=== PATIENT | female | born 1960 | race African-American/Black ===

== ENCOUNTER → 2017-07-21 | Outpatient (CLI) | payer OTHER ==
[2017-07-21] MEDS: GADOBUTROL 7.5 MMOL/7.5 ML VIAL IV (11:53)
== END | disposition home or self-care (01) ==
LOC: KCIC MRI 10:50
DX: G40.909 Epilepsy, unspecified, not intractable, without status epilepticus (principal)
CPT/HCPCS: 70553; A9585

== ENCOUNTER → 2017-08-10 | Outpatient (CLI) | payer OTHER | END | disposition home or self-care (01) | LOC: RT 11:25 | DX: G40.309 Generalized idiopathic epilepsy and epileptic syndromes, not intractable, without status epilepticus (principal) | CPT/HCPCS: 95816 ==

== ENCOUNTER 2018-06-04 19:02 | Emergency (ER) | payer OTHER ==
[~2018-06-04] VITALS: Ht 170.2 cm; Wt 47.6 kg
[~2018-06-04 19:02] MED LIST: CARB200T PO; CLON0.5T PO
[2018-06-04 20:12] LABS: BASO # 0.1 x10^3/uL (0.0-0.2); BASO % 1 % (0-3); EOS # 0.5 x10^3/uL (0.0-0.7); EOS % 7 % (0-3); HEMATOCRIT 37.4 % (36.0-47.0); HEMOGLOBIN 11.8 g/dL (12.0-15.5); LYMPH # 2.1 x10^3/uL (1.0-4.8); LYMPH % 29 % (24-48); MEAN CORPUSCULAR HEMOGLOBIN 25 pg (25-35); MEAN CORPUSCULAR HGB CONC 31 g/dL (31-37); MEAN CORPUSCULAR VOLUME 78 fL (79-100); MONO # 0.3 x10^3/uL (0.0-1.1); MONO % 4 % (0-9); NEUT # 4.2 x10^3uL (1.8-7.7); NEUT % 58 % (31-73); PLATELET COUNT 310 x10^3/uL (140-400); RED BLOOD COUNT 4.78 x10^6/uL (3.50-5.40); RED CELL DISTRIBUTION WIDTH 14.5 % (11.5-14.5); WHITE BLOOD COUNT 7.1 x10^3/uL (4.0-11.0)
[2018-06-04 20:15] LABS: BILIRUBIN,URINE NEGATIVE (NEG); CLARITY,URINE CLEAR; COLOR,URINE YELLOW; NITRITE,URINE NEGATIVE (NEG); PH,URINE 5.5; PROTEIN,URINE NEGATIVE (NEG-TRACE); UROBILINOGEN,URINE 0.2 mg/dL (0.2 mg/dL)
[2018-06-04 20:22] LABS: AMPHETAMINE/METHAMPHETAMINE NEG (NEG); BARBITURATES NEG (NEG); BENZODIAZEPINES NEG (NEG); CANNABINOIDS POS (NEG); COCAINE NEG (NEG); METHADONE NEG (NEG); OPIATES NEG (NEG); PHENCYCLIDINE NEG (NEG)
[2018-06-04 20:28] LABS: BACTERIA,URINE MODERATE /HPF (0-FEW); SQUAMOUS EPITHELIAL CELL,UR OCC /LPF; WBC,URINE >40 /HPF (0-4)
[2018-06-04 20:31] LABS: CALCIUM 9.1 mg/dL (8.5-10.1); CREATININE 0.7 mg/dL (0.6-1.0); GFR 104.7; POTASSIUM 3.8 mmol/L (3.5-5.1)
[2018-06-04 20:41] LABS: ALBUMIN 3.7 g/dL (3.4-5.0); ALBUMIN/GLOBULIN RATIO 0.9 (1.0-1.7); TOTAL BILIRUBIN 0.2 mg/dL (0.2-1.0); TOTAL PROTEIN 7.7 g/dL (6.4-8.2)
[2018-06-04] MEDS ORDERED: IOHEXOL 300 MG/ML 100ML VIAL. IV ONE (20:45)
[2018-06-04] MEDS ORDERED: CONTRAST GIVEN. MC PRN (21:00)
--- NOTE | 2018-06-04 21:02 | PHYS DOC ---
Past Medical History Past Medical History: Anemia, Other Additional Past Medical Histor: EPILEPSY Past Surgical History: Other Additional Past Surgical Histo: TUBES TIDE, 'FACIAL SURGERY' Alcohol Use: None Drug Use: Marijuana Adult General Chief Complaint Chief Complaint: ABDOMINAL PAIN [facility] HPI Patient is a 57 yo female who presents with complaint of two months of decreased appetite and one month of periumbilical and suprapubic abdominal pain. She reports that her brother the month prior to symptom onset and she wondered if her symptoms were part of the grieving process, however she reports her symptoms have worsened. She describes her abdominal pain as intermittent stabbing pain. She also reports that occasionally she gets "hunger pains" but has "no desire to eat". She reports that her clothes are not fitting more loosely than prior to symptom onset. She reports that today she ate milk and cereal which gave her gas (although she reports she used cow's milk and is lactose intolerant), spicy doritos which did not cause symptoms, and 1/2 of a fall and beef burrito which caused abdominal pain. She also reports that today she began having intermittent stabbing R arm pain and back pain but was unable to clarify whether the pain occurred at the same moment as the abdominal pain. She denies dysuria or hematuria, shortness of breath, palpitations, dizziness. She reports a month ago she thinks she had tarry stools, but now describes she has regular stools that are purple and green. Patient reports she has hx epilepsy and neurologist is Dr. Tsai. She denies having a PCP or gynocologist as she recently moved from [place], [place] and has been unable to establish care with anyone. She also reports she is postmenopausal and was told 3 years ago that she has "fibroids on her ovaries that need to be removed before they become cancer". Patient admits to smoking tobacco, occasinoal marijuana usage, former crack cocaine usage, and denies etoh usage. Review of Systems Review of Systems Constitutional: Denies fever or chills [] Respiratory: Denies cough or shortness of breath [] Cardiovascular: No additional information not addressed in HPI [] GI: Admits abdominal pain. Denies diarrhea, constipation, BRBPR, hematochezia. Admits "purple and green stools" : Denies dysuria or hematuria. Denies vaginal DC. Musculoskeletal: Admits intermittent back pain and R arm pain. Integument: Denies rash or skin lesions [] Neurologic: Admits migraines. Admits hx epilepsy All other systems were reviewed and found to be within normal limits, except as documented in this note. Current Medications Current Medications Current Medications Medications (Trade) Dose Ordered Sig/Nishant Start Time Stop Time Status Last Admin Dose Admin Acetaminophen/ Hydrocodone Bitart (Lortab 5/325) 2 tab 1X ONCE 06/04/18 22:15 06/04/18 22:16 DC 06/04/18 22:11 2 TAB Ceftriaxone Sodium (Rocephin) 1 gm 1X ONCE 06/04/18 21:15 06/04/18 21:16 DC 06/04/18 21:54 1 GM Info (CONTRAST GIVEN -- Rx MONITORING) 1 each PRN DAILY PRN 06/04/18 21:00 06/04/18 22:20 DC Iohexol (Omnipaque 300 Mg/ml) 75 ml 1X ONCE 06/04/18 20:45 06/04/18 20:48 DC 06/04/18 21:03 75 ML Allergies Allergies Allergies Coded Allergies Type Severity Reaction Last Updated Verified No Known Drug Allergies 07/21/17 No Physical Exam Physical Exam Constitutional: Well developed, well nourished, thin, HENT: Normocephalic, atraumatic, bilateral external ears normal, oropharynx moist, no oral exudates, nose normal. [] Eyes: PERRLA, EOMI, conjunctiva normal, no discharge. [] Neck: Normal range of motion, no tenderness, supple, no stridor. [] Cardiovascular:Heart rate regular rhythm, no murmur [] Lungs & Thorax: Bilateral breath sounds clear to auscultation [] Abdomen: Bowel sounds normal, soft, epigastric tenderness, no masses, no pulsatile masses. [] Skin: Warm, dry, no erythema, no rash. [] Back: No tenderness, no CVA tenderness. [] Extremities: No tenderness, no cyanosis, no clubbing, ROM intact, no edema. [] Neurologic: Alert and oriented X 3, normal motor function, normal sensory function, no focal deficits noted. [] Psychologic: Affect normal, judgement normal, mood normal. [] Current Patient Data Vital Signs Vital Signs Date Time Temp Pulse Resp B/P (MAP) Pulse Ox O2 Delivery O2 Flow Rate FiO2 06/04/18 22:11 16 99 Room Air 06/04/18 22:00 74 137/73 (94) 06/04/18 19:10 98.2 98.2 Lab Values Laboratory Tests Test 06/04/18 19:06 06/04/18 19:25 06/04/18 19:45 Urine Collection Type Unknown Urine Color Yellow Urine Clarity Clear Urine pH 5.5 Urine Specific [place] 1.015 Urine Protein Negative mg/dL (NEG-TRACE) Urine Glucose (UA) Negative mg/dL (NEG) Urine Ketones (Stick) Negative mg/dL (NEG) Urine Blood Negative (NEG) Urine Nitrite Negative (NEG) Urine Bilirubin Negative (NEG) Urine Urobilinogen Dipstick 0.2 mg/dL (0.2 mg/dL) Urine Leukocyte Esterase Moderate (NEG) Urine RBC 11-20 /HPF (0-2) Urine WBC >40 /HPF (0-4) Urine Squamous Epithelial Cells Occ /LPF Urine Bacteria Moderate /HPF (0-FEW) Urine Mucus Mod /LPF Urine Opiates Screen Neg (NEG) Urine Methadone Screen Neg (NEG) Urine Barbiturates Neg (NEG) Urine Phencyclidine Screen Neg (NEG) Urine Amphetamine/Methamphetamine Neg (NEG) Urine Benzodiazepines Screen Neg (NEG) Urine Cocaine Screen Neg (NEG) Urine Cannabinoids Screen Pos (NEG) Urine Ethyl Alcohol Neg (NEG) POC Urine HCG, Qualitative Hcg negative (Negative) White Blood Count 7.1 x10^3/uL (4.0-11.0) Red Blood Count 4.78 x10^6/uL (3.50-5.40) Hemoglobin 11.8 g/dL (12.0-15.5) L Hematocrit 37.4 % (36.0-47.0) Mean Corpuscular Volume 78 fL (79-100) L Mean Corpuscular Hemoglobin 25 pg (25-35) Mean Corpuscular Hemoglobin Concent 31 g/dL (31-37) Red Cell Distribution Width 14.5 % (11.5-14.5) Platelet Count 310 x10^3/uL (140-400) Neutrophils (%) (Auto) 58 % (31-73) Lymphocytes (%) (Auto) 29 % (24-48) Monocytes (%) (Auto) 4 % (0-9) Eosinophils (%) (Auto) 7 % (0-3) H Basophils (%) (Auto) 1 % (0-3) Neutrophils # (Auto) 4.2 x10^3uL (1.8-7.7) Lymphocytes # (Auto) 2.1 x10^3/uL (1.0-4.8) Monocytes # (Auto) 0.3 x10^3/uL (0.0-1.1) Eosinophils # (Auto) 0.5 x10^3/uL (0.0-0.7) Basophils # (Auto) 0.1 x10^3/uL (0.0-0.2) Sodium Level 142 mmol/L (136-145) Potassium Level 3.8 mmol/L (3.5-5.1) Chloride Level 103 mmol/L (98-107) Carbon Dioxide Level 26 mmol/L (21-32) Anion Gap 13 (6-14) Blood Urea Nitrogen 4 mg/dL (7-20) L Creatinine 0.7 mg/dL (0.6-1.0) Estimated GFR (Cockcroft-Gault) 104.7 BUN/Creatinine Ratio 6 (6-20) Glucose Level 104 mg/dL (70-99) H Calcium Level 9.1 mg/dL (8.5-10.1) Total Bilirubin 0.2 mg/dL (0.2-1.0) Aspartate Amino Transferase (AST) 13 U/L (15-37) L Alanine Aminotransferase (ALT) 17 U/L (14-59) Alkaline Phosphatase 99 U/L (46-116) Troponin I Quantitative < 0.017 ng/mL (0.000-0.055) Total Protein 7.7 g/dL (6.4-8.2) Albumin 3.7 g/dL (3.4-5.0) Albumin/Globulin Ratio 0.9 (1.0-1.7) L Lipase 111 U/L (73-393) Ethyl Alcohol Level < 10 mg/dL (0-10) Laboratory Tests 06/04/18 19:45 Laboratory Tests 06/04/18 19:45 EKG EKG [@ 2001; HR 70 BPM; Sinus rhythm. QRS/QT intervals unremarkable] Radiology/Procedures Radiology/Procedures [PROCEDURE: CT ABD PELV W/ IV CONTRST ONLY CT abdomen and pelvis with contrast TECHNIQUE: Helical CT imaging abdomen and pelvis was acquired with 75 mL Omnipaque 300 intravenous contrast. PQRS statement: CT scans at this facility use dose reduction including either automated exposure control, iterative reconstructions, and /or weight based radiation dosing via mA and kV modification when appropriate to reduce radiation dose to as low as reasonably achievable. HISTORY: Abdominal pain, early satiety. Abdomen findings: Chronic mild compression fractures of the T11, T12 and L1 vertebra. Nonspecific small subcentimeter hypodense lesion right hepatic lobe segment 8 image 16. Spleen, pancreas, adrenal glands, kidneys and gallbladder are unremarkable. There is abnormal wall hypodense submucosal wall thickening at the gastric antrum and pylorus, involvement of the duodenal bulb is also possible. No bowel obstruction evident. Appendix is negative. Duplicated IVC. No abdominal fluid or adenopathy. Pelvis findings: Retroverted uterus there is a 5 cm hypervascular mass of the uterine fundus posteriorly. Ovaries somewhat obscured by surrounding bowel loops. Bladder, rectum and bones are unremarkable. IMPRESSION: 1. Marked wall thickening of the gastric antrum, pylorus and possible involvement of the duodenal bulb. This could indicate gastroenteritis although given the marked degree of wall thickening and relative absence of surrounding edema, infiltrating gastric malignancy such as linitis plastica, or gastric lymphoma would also be considerations. 2. 5 cm hypervascular mass of the uterine fundus. Statistically is most likely a leiomyoma although certainly a uterine sarcoma would be in the differential diagnosis. 3. Chronic thoracolumbar compression fractures. 4. The appendix is negative. Electronically signed by: Billy Tovar MD (06/04/2018 9:16 PM) [facility] DICTATED and SIGNED BY: BILLY TOVAR MD DATE: 06/04/182115 ] Course & Med Decision Making Course & Med Decision Making Patient is a 57 yo female w/ hx epilepsy w/ chief complaint of abdominal pain. Patient reports she has had decreased appetite for 2 months and intermittent abdominal pain for 1 month. . UA reveals moderate leukocytes, moderate bacteria , and occasional squamous cells. CT abdomen pelvis revealed thickening of stomach lining, pylorus, and possible first part of duodenum, which could be suggestive of malignancy or gastritis. EKG unremarkable. CT also mentioned uterine mass/probable leiomyoma. Patient informed of CT findings and given recommendations to establish care with PCP and GI specialist for follow up endoscopy discussed specific possible diagnoses and need for f/u wtihin one motnh. Patient's abdominal pain treated with protonix, norco, and zofran. UTI treated with keflex. Discussed with patient the importance of follow up to further evaluate the CT findings from today. Patient voiced understanding and agreement with plan. Dragon Disclaimer Dragon Disclaimer This electronic medical record was generated, in whole or in part, using a voice recognition dictation system. Departure Departure Impression: Primary Impression: Gastric wall thickening Disposition: HOME, SELF-CARE Condition: STABLE Referrals: JOE CHEW MD (PCP) Scripts Pantoprazole Sodium (PROTONIX) 20 Mg Tablet.dr 1 TAB PO DAILY, #30 TAB 3 Refills Prov: VICKY SCHMIDT MD 06/04/18 Hydrocodone/Apap 5-325 (NORCO 5-325 TABLET) 1 Each Tablet 1-2 EACH PO PRN Q6HRS PRN for PAIN, #15 as needed for pain Prov: VICKY SCHMIDT MD 06/04/18 Ondansetron Hcl (ZOFRAN) 4 Mg Tablet 4 MG PO PRN TID PRN for NAUSEA/VOMITING, #15 nausea/vomiting Prov: VICKY SCHMIDT MD 06/04/18 Cephalexin (CEPHALEXIN) 500 Mg Capsule 1 CAP PO QID, #40 CAP Prov: VICKY SCHMIDT MD 06/04/18 VICKY SCHMIDT MD Jun 04, 2018 21:02
[2018-06-04] MEDS ORDERED: cefTRIAXone IV Push 1 GM VIAL. IVP ONE (21:15)
--- NOTE | 2018-06-04 21:19 | RAD ---
CT abdomen and pelvis with contrast TECHNIQUE: Helical CT imaging abdomen and pelvis was acquired with 75 mL Omnipaque 300 intravenous contrast. PQRS statement: CT scans at this facility use dose reduction including either automated exposure control, iterative reconstructions, and /or weight based radiation dosing via mA and kV modification when appropriate to reduce radiation dose to as low as reasonably achievable. HISTORY: Abdominal pain, early satiety. Abdomen findings: Chronic mild compression fractures of the T11, T12 and L1 vertebra. Nonspecific small subcentimeter hypodense lesion right hepatic lobe segment 8 image 16. Spleen, pancreas, adrenal glands, kidneys and gallbladder are unremarkable. There is abnormal wall hypodense submucosal wall thickening at the gastric antrum and pylorus, involvement of the duodenal bulb is also possible. No bowel obstruction evident. Appendix is negative. Duplicated IVC. No abdominal fluid or adenopathy. Pelvis findings: Retroverted uterus there is a 5 cm hypervascular mass of the uterine fundus posteriorly. Ovaries somewhat obscured by surrounding bowel loops. Bladder, rectum and bones are unremarkable. IMPRESSION: 1. Marked wall thickening of the gastric antrum, pylorus and possible involvement of the duodenal bulb. This could indicate gastroenteritis although given the marked degree of wall thickening and relative absence of surrounding edema, infiltrating gastric malignancy such as linitis plastica, or gastric lymphoma would also be considerations. 2. 5 cm hypervascular mass of the uterine fundus. Statistically is most likely a leiomyoma although certainly a uterine sarcoma would be in the differential diagnosis. 3. Chronic thoracolumbar compression fractures. 4. The appendix is negative. Electronically signed by: Praveen Tovar MD (06/04/2018 9:16 PM) [facility]
[2018-06-04] MEDS ORDERED: HYDR-3164 PO (21:59)
[2018-06-04] MEDS ORDERED: PANT20TA2 PO (21:59)
[2018-06-04] MEDS ORDERED: ONDA4TAB7 PO (21:59)
[2018-06-04] MEDS ORDERED: CEPH500C PO (21:59)
[2018-06-04 22:00] VITALS: BP 137/73
[2018-06-04] MEDS ORDERED: HYDROcodone/APAP 5/325MG 1 TAB TABLET PO ONE (22:15)
--- NOTE | 2018-06-05 08:43 | EKG ---
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
== END 2018-06-04 22:20 | disposition home or self-care (01) ==
LOC: ER 19:02
DX: K31.89 Other diseases of stomach and duodenum (principal); R10.33 Periumbilical pain; R63.0 Anorexia; M79.601 Pain in right arm; G40.909 Epilepsy, unspecified, not intractable, without status epilepticus
CPT/HCPCS: 36415; 74177; 80053; 80307; 81001; 81025; 83690; 84484; 85025; 87086; 93005; 96374; 99285; G0480; J0696; Q9967

== ENCOUNTER 2018-10-28 14:14 | Emergency (ER) | payer OTHER ==
[~2018-10-28] VITALS: Ht 167.6 cm; Wt 55.3 kg
[~2018-10-28 14:14] MED LIST changes: +CEPH500C PO; +HYDR-3164 PO; +ONDA4TAB7 PO; +PANT20TA2 PO
[2018-10-28] MEDS ORDERED: IV NORMAL SALINE 1000ML BAG 1,000 ML IV ONE (14:45)
[2018-10-28 15:01] LABS: BASO # 0.1 x10^3/uL (0.0-0.2); BASO % 1 % (0-3); EOS # 0.3 x10^3/uL (0.0-0.7); EOS % 4 % (0-3); HEMATOCRIT 37.7 % (36.0-47.0); HEMOGLOBIN 11.7 g/dL (12.0-15.5); LYMPH # 2.9 x10^3/uL (1.0-4.8); LYMPH % 38 % (24-48); MEAN CORPUSCULAR HEMOGLOBIN 24 pg (25-35); MEAN CORPUSCULAR HGB CONC 31 g/dL (31-37); MEAN CORPUSCULAR VOLUME 76 fL (79-100); MONO # 0.3 x10^3/uL (0.0-1.1); MONO % 4 % (0-9); NEUT # 4.1 x10^3/uL (1.8-7.7); NEUT % 54 % (31-73); PLATELET COUNT 249 x10^3/uL (140-400); RED BLOOD COUNT 4.97 x10^6/uL (3.50-5.40); WHITE BLOOD COUNT 7.6 x10^3/uL (4.0-11.0)
[2018-10-28 15:05] LABS: BILIRUBIN,URINE NEGATIVE (NEG); CLARITY,URINE CLEAR; COLOR,URINE YELLOW; NITRITE,URINE NEGATIVE (NEG); PH,URINE 6.5; PROTEIN,URINE NEGATIVE (NEG-TRACE); UROBILINOGEN,URINE 0.2 mg/dL (0.2 mg/dL)
[2018-10-28 15:08] LABS: ANION GAP 13 (6-14); BLOOD UREA NITROGEN 13 mg/dL (7-20); BUN/CREATININE RATIO 16 (6-20); CALCIUM 8.9 mg/dL (8.5-10.1); CARBON DIOXIDE 24 mmol/L (21-32); CHLORIDE 106 mmol/L (98-107); CREATININE 0.8 mg/dL (0.6-1.0); GFR 89.5; GLUCOSE 88 mg/dL (70-99); POTASSIUM 3.8 mmol/L (3.5-5.1); SODIUM 143 mmol/L (136-145)
[2018-10-28 15:14] LABS: AMPHETAMINE/METHAMPHETAMINE NEG (NEG); BARBITURATES NEG (NEG); BENZODIAZEPINES NEG (NEG); CANNABINOIDS POS (NEG); COCAINE NEG (NEG); METHADONE NEG (NEG); OPIATES NEG (NEG); PHENCYCLIDINE NEG (NEG)
[2018-10-28 15:17] LABS: ALBUMIN 3.9 g/dL (3.4-5.0); ALK PHOS 106 U/L (46-116); ALT (SGPT) 22 U/L (14-59); AST (SGOT) 20 U/L (15-37); CREATINE KINASE 81 U/L (26-192); TOTAL BILIRUBIN 0.2 mg/dL (0.2-1.0); TOTAL PROTEIN 7.9 g/dL (6.4-8.2)
[2018-10-28 15:20] LABS: BACTERIA,URINE 0 /HPF (0-FEW); RBC,URINE 0 /HPF (0-2); SQUAMOUS EPITHELIAL CELL,UR OCC /LPF; WBC,URINE OCC /HPF (0-4)
--- NOTE | 2018-10-28 15:28 | EKG ---
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
[2018-10-28 15:31] LABS: CARBAM 7.2 mcg/mL (4.0-12.0)
[2018-10-28 15:53] VITALS: BP 171/79
--- NOTE | 2018-10-28 15:58 | PHYS DOC ---
Past Medical History Past Medical History: Anemia, Other Additional Past Medical Histor: EPILEPSY Past Surgical History: Other Additional Past Surgical Histo: TUBES TIDE, 'FACIAL SURGERY' Alcohol Use: None Drug Use: Marijuana Adult General Chief Complaint Chief Complaint: SEIZURE HPI HPI Patient is a 58 year old who was brought here by EMS due to seizure activity. Patient was out shopping at the grocery store, had a seizure that lasted for 1 minute. Patient denied any headache, no neck pain, no chest pain, no shortness of air. Patient has history of seizure, on tegretol, HAS BEEN TAKING HER MEDICATION DIRECTED. Patient is under the care of DR. JOE GIANG, NEUROLOGIST. Patient denied any back pain. She is complaining of left thight pain. no hip pain, no pelvic pain, no knee pain. Review of Systems Review of Systems Constitutional: Denies fever or chills [] Eyes: Denies change in visual acuity, redness, or eye pain [] HENT: Denies nasal congestion or sore throat [] Respiratory: Denies cough or shortness of breath [] Cardiovascular: No additional information not addressed in HPI [] GI: Denies abdominal pain, nausea, vomiting, bloody stools or diarrhea [] : Denies dysuria or hematuria [] Musculoskeletal: Denies back pain, Positive for left thigh pain. Integument: Denies rash or skin lesions [] Neurologic: Denies headache, focal weakness or sensory changes. POSITIVE FOR SEIZURE. Endocrine: Denies polyuria or polydipsia [] All other systems were reviewed and found to be within normal limits, except as documented in this note. Current Medications Current Medications Current Medications Medications (Trade) Dose Ordered Sig/Nishant Start Time Stop Time Status Last Admin Dose Admin Sodium Chloride 1,000 ml @ 1,000 mls/hr 1X ONCE 10/28/18 14:45 10/28/18 15:44 DC 10/28/18 15:04 1,000 MLS/HR Allergies Allergies Allergies Coded Allergies Type Severity Reaction Last Updated Verified No Known Drug Allergies 07/21/17 No Physical Exam Physical Exam Constitutional: Well developed, well nourished, no acute distress, non-toxic appearance. [] HENT: Normocephalic, atraumatic, bilateral external ears normal, oropharynx moist, no oral exudates, nose normal. [] Eyes: PERRLA, EOMI, conjunctiva normal, no discharge. [] Neck: Normal range of motion, no tenderness, supple, no stridor. [] Cardiovascular:Heart rate regular rhythm, no murmur [] Lungs & Thorax: Bilateral breath sounds clear to auscultation [] Abdomen: Bowel sounds normal, soft, no tenderness, no masses, no pulsatile masses. [] Skin: Warm, dry, no erythema, no rash. [] Back: No tenderness, no CVA tenderness. [] Extremities: No tenderness, no cyanosis, no clubbing, ROM intact, no edema. [] Neurologic: Alert and oriented X 3, normal motor function, normal sensory function, no focal deficits noted. [] Psychologic: Affect normal, judgement normal, mood normal. [] Current Patient Data Vital Signs Vital Signs Date Time Temp Pulse Resp B/P (MAP) Pulse Ox O2 Delivery O2 Flow Rate FiO2 10/28/18 15:53 60 18 99 10/28/18 14:14 98.6 195/91 (125) Room Air 98.6 Lab Values Laboratory Tests Test 10/28/18 14:22 10/28/18 14:45 Urine Color Yellow Urine Clarity Clear Urine pH 6.5 Urine Specific [place] 1.015 Urine Protein Negative mg/dL (NEG-TRACE) Urine Glucose (UA) Negative mg/dL (NEG) Urine Ketones (Stick) Negative mg/dL (NEG) Urine Blood Negative (NEG) Urine Nitrite Negative (NEG) Urine Bilirubin Negative (NEG) Urine Urobilinogen Dipstick 0.2 mg/dL (0.2 mg/dL) Urine Leukocyte Esterase Negative (NEG) Urine RBC 0 /HPF (0-2) Urine WBC Occ /HPF (0-4) Urine Squamous Epithelial Cells Occ /LPF Urine Bacteria 0 /HPF (0-FEW) Urine Mucus Slight /LPF Urine Opiates Screen Neg (NEG) Urine Methadone Screen Neg (NEG) Urine Barbiturates Neg (NEG) Urine Phencyclidine Screen Neg (NEG) Urine Amphetamine/Methamphetamine Neg (NEG) Urine Benzodiazepines Screen Neg (NEG) Urine Cocaine Screen Neg (NEG) Urine Cannabinoids Screen Pos (NEG) Urine Ethyl Alcohol Neg (NEG) White Blood Count 7.6 x10^3/uL (4.0-11.0) Red Blood Count 4.97 x10^6/uL (3.50-5.40) Hemoglobin 11.7 g/dL (12.0-15.5) L Hematocrit 37.7 % (36.0-47.0) Mean Corpuscular Volume 76 fL (79-100) L Mean Corpuscular Hemoglobin 24 pg (25-35) L Mean Corpuscular Hemoglobin Concent 31 g/dL (31-37) Red Cell Distribution Width 15.0 % (11.5-14.5) H Platelet Count 249 x10^3/uL (140-400) Neutrophils (%) (Auto) 54 % (31-73) Lymphocytes (%) (Auto) 38 % (24-48) Monocytes (%) (Auto) 4 % (0-9) Eosinophils (%) (Auto) 4 % (0-3) H Basophils (%) (Auto) 1 % (0-3) Neutrophils # (Auto) 4.1 x10^3/uL (1.8-7.7) Lymphocytes # (Auto) 2.9 x10^3/uL (1.0-4.8) Monocytes # (Auto) 0.3 x10^3/uL (0.0-1.1) Eosinophils # (Auto) 0.3 x10^3/uL (0.0-0.7) Basophils # (Auto) 0.1 x10^3/uL (0.0-0.2) Sodium Level 143 mmol/L (136-145) Potassium Level 3.8 mmol/L (3.5-5.1) Chloride Level 106 mmol/L (98-107) Carbon Dioxide Level 24 mmol/L (21-32) Anion Gap 13 (6-14) Blood Urea Nitrogen 13 mg/dL (7-20) Creatinine 0.8 mg/dL (0.6-1.0) Estimated GFR (Cockcroft-Gault) 89.5 BUN/Creatinine Ratio 16 (6-20) Glucose Level 88 mg/dL (70-99) Calcium Level 8.9 mg/dL (8.5-10.1) Total Bilirubin 0.2 mg/dL (0.2-1.0) Aspartate Amino Transferase (AST) 20 U/L (15-37) Alanine Aminotransferase (ALT) 22 U/L (14-59) Alkaline Phosphatase 106 U/L (46-116) Creatine Kinase 81 U/L (26-192) Troponin I Quantitative < 0.017 ng/mL (0.000-0.055) Total Protein 7.9 g/dL (6.4-8.2) Albumin 3.9 g/dL (3.4-5.0) Albumin/Globulin Ratio 1.0 (1.0-1.7) Carbamazepine (Tegretol) Level 7.2 mcg/mL (4.0-12.0) Carbamazepine Last Dose Date 10/27/18 Carbamazepine Last Dose Time 1900 Laboratory Tests 10/28/18 14:45 Laboratory Tests 10/28/18 14:45 EKG EKG [] Radiology/Procedures Radiology/Procedures [][facility] [address] [place] [address] IMAGING REPORT Signed PATIENT: CLAYTON GUEVARA ACCOUNT: [id number] : 1960 LOCATION: ER AGE: 58 SEX: F EXAM STATUS: REG ER ORD. PHYSICIAN: JF BURGOS DO REASON: FELL, LEFT THIGH PAIN PROCEDURE: LEFT FEMUR XRAY EXAM: Left femur, 2 views. HISTORY: Fall. Pain. COMPARISON: None. FINDINGS: 2 views of the left femur are obtained. There is no fracture, dislocation or subluxation. There is enthesopathy along the superior patella. No suspicious lytic or sclerotic osseous lesion is seen. IMPRESSION: No acute osseous finding. Electronically signed by: Brit Do MD (10/28/2018 4:00 PM) [facility] DICTATED and SIGNED BY: BRIT DO MD DATE: 10/28/18 1600 Course & Med Decision Making Course & Med Decision Making Pertinent Labs and Imaging studies reviewed. (See chart for details) Patient felt much better now, wanted to go home. Dragon Disclaimer Dragon Disclaimer This electronic medical record was generated, in whole or in part, using a voice recognition dictation system. Departure Departure Impression: Primary Impression: Seizure Disposition: HOME, SELF-CARE Condition: STABLE Referrals: JOE HCEW MD (PCP) please call your neurologist for follow up on Wednesday. NO DRIVING, NO OPERATE MACHINARY EQUIPMENT, NO CLIMB STAIRWAY. Patient Instructions: Seizure, Adult BURGOS,PETER T DO Oct 28, 2018 15:58
--- NOTE | 2018-10-28 16:03 | RAD ---
EXAM: Left femur, 2 views. HISTORY: Fall. Pain. COMPARISON: None. FINDINGS: 2 views of the left femur are obtained. There is no fracture, dislocation or subluxation. There is enthesopathy along the superior patella. No suspicious lytic or sclerotic osseous lesion is seen. IMPRESSION: No acute osseous finding. Electronically signed by: Brit Becerra MD (10/28/2018 4:00 PM) [facility]
[2018-10-29] MEDS ORDERED: NEOMY/BACITR/POLYMYXIN OINT PACKET. TP ONE (16:59)
[2018-10-30] MEDS ORDERED: CARB200T4 PO (08:57)
== END 2018-10-28 16:06 | disposition home or self-care (01) ==
LOC: ER 14:14
DX: R56.9 Unspecified convulsions (principal)
CPT/HCPCS: 36415; 73552; 80053; 80156; 80307; 81001; 82550; 84484; 85025; 93005; J7030; 99285-25

== ENCOUNTER 2018-10-29 14:46 | Inpatient (IN) | payer OTHER ==
[~2018-10-29] VITALS: Ht 167.6 cm; Wt 54.4 kg
[2018-10-29] MEDS ORDERED: levETIRAcetam 1,000 MG in IV DEXTROSE 5% 100ML 100 ML IV ONE (15:00)
[2018-10-29] MEDS ORDERED: IV NORMAL SALINE 1000ML BAG 1,000 ML IV ONE (15:00)
[2018-10-29 15:03] LABS: BASO # 0.1 x10^3/uL (0.0-0.2); BASO % 1 % (0-3); EOS # 0.1 x10^3/uL (0.0-0.7); EOS % 2 % (0-3); HEMATOCRIT 36.1 % (36.0-47.0); HEMOGLOBIN 11.6 g/dL (12.0-15.5); LYMPH # 2.5 x10^3/uL (1.0-4.8); LYMPH % 34 % (24-48); MEAN CORPUSCULAR HEMOGLOBIN 24 pg (25-35); MEAN CORPUSCULAR HGB CONC 32 g/dL (31-37); MEAN CORPUSCULAR VOLUME 74 fL (79-100); MONO # 0.5 x10^3/uL (0.0-1.1); MONO % 7 % (0-9); NEUT # 4.1 x10^3/uL (1.8-7.7); NEUT % 57 % (31-73); PLATELET COUNT 220 x10^3/uL (140-400); RED BLOOD COUNT 4.85 x10^6/uL (3.50-5.40); RED CELL DISTRIBUTION WIDTH 14.6 % (11.5-14.5); WHITE BLOOD COUNT 7.2 x10^3/uL (4.0-11.0)
[2018-10-29 15:08] LABS: CALCIUM 8.8 mg/dL (8.5-10.1); CREATININE 0.8 mg/dL (0.6-1.0); GFR 89.5; POTASSIUM 3.1 mmol/L (3.5-5.1)
[2018-10-29 15:12] LABS: CARBAM 6.6 mcg/mL (4.0-12.0)
[2018-10-29 15:14] LABS: ALBUMIN 3.9 g/dL (3.4-5.0); TOTAL BILIRUBIN 0.4 mg/dL (0.2-1.0); TOTAL PROTEIN 7.9 g/dL (6.4-8.2)
--- NOTE | 2018-10-29 15:39 | RAD ---
EXAM: Pelvis, single view; right shoulder, 3 views. HISTORY: Pain. COMPARISON: None. FINDINGS: Pelvis: A frontal view of the pelvis is obtained. There is no fracture, dislocation or subluxation. There is a transitional lumbosacral segment, a normal variant. Right shoulder: 3 views of the right shoulder obtained. There is no fracture, dislocation or subluxation. There is minimal subacromial spurring. IMPRESSION: No acute osseous finding. Electronically signed by: Brit Becerra MD (10/29/2018 3:36 PM) [facility]
--- NOTE | 2018-10-29 15:58 | RAD ---
EXAM: Head CT without contrast; cervical spine CT without contrast; maxillofacial bone CT without contrast. HISTORY: Seizure. Fall. TECHNIQUE: Computed tomographic images of the head, cervical spine and maxillofacial bones were obtained without contrast. *One or more of the following individualized dose reduction techniques were utilized for this examination: 1. Automated exposure control. 2. Adjustment of the mA and/or kV according to patient size. 3. Use of iterative reconstruction technique. COMPARISON: None. FINDINGS: Head: There is a moderate to large inferior right frontal scalp and right periorbital soft tissue hematoma. No intracranial hemorrhage is seen. There is no mass effect or midline shift. There is no hydrocephalus. There is nonspecific decreased attenuation within the cerebral white matter, likely due to chronic small vessel disease. There is a suspected small chronic lacunar infarct or dilated perivascular space within the right putamen or external capsule. No calvarial lesion is seen. The mastoid air cells are clear. Cervical spine: There is no significant listhesis. The vertebral bodies are normal in height. There is degenerative endplate remodeling and Schmorl's node formation at C6-C7. There is mild facet arthropathy at multiple levels. No severe stenosis is seen. There is biapical pleural parenchymal scarring. Maxillofacial bones: There is a chronic appearing left nasal bone fracture. There is no sinus opacification or air-fluid level. The temporomandibular joints are intact. There is incidental torus mandibularis. IMPRESSION: 1. Inferior right frontal scalp and right periorbital soft tissue hematoma. There is no acute intracranial finding or evidence of acute maxillofacial bone trauma. 2. Subtle decreased attenuation within the cerebral white matter, likely due to chronic small vessel disease. There may be a chronic lacunar infarct or dilated perivascular space within the right basal ganglia or external capsule. 3. Suspected chronic left nasal bone fracture. 4. Multilevel degenerative change involving the cervical spine, described above. Electronically signed by: Brit eBcerra MD (10/29/2018 3:56 PM) [facility]
--- NOTE | 2018-10-29 16:26 | PHYS DOC ---
Past Medical History Past Medical History: Anemia, Other Additional Past Medical Histor: EPILEPSY Past Surgical History: Other Additional Past Surgical Histo: TUBES TIDE, 'FACIAL SURGERY' Alcohol Use: None Drug Use: Marijuana Adult General Chief Complaint Chief Complaint: SEIZURE HPI HPI Patient is a 58 year old female who was brought here by EMS after she had a seizure today. Patient has history of seizure, on tegretol. She said she has been taking the seizure medication as directed. Patient was at her neighbor's driveway. She had a seizure, fell down, hit her head, face, right shoulder on the ground. Patient is complaining of headache, facial pain, right shoulder pain. Patient also complains of left side pelvic pain. Patient was seen here yesterday for seizure activity also. Patient said she took her seizure medication last night. Patient denied any back pain. Review of Systems Review of Systems Constitutional: Denies fever or chills [] Eyes: Denies change in visual acuity, redness, or eye pain [] HENT: Denies nasal congestion or sore throat. Positive for facial contusion, head injury Respiratory: Denies cough or shortness of breath [] Cardiovascular: No additional information not addressed in HPI [] GI: Denies abdominal pain, nausea, vomiting, bloody stools or diarrhea [] : Denies dysuria or hematuria [] Musculoskeletal:Positive for right shoulder pain, pelvic pain. Integument: Denies rash or skin lesions [] Neurologic: Positive for headache, seizure Endocrine: Denies polyuria or polydipsia [] All other systems were reviewed and found to be within normal limits, except as documented in this note. Current Medications Current Medications Current Medications Medications (Trade) Dose Ordered Sig/Nishant Start Time Stop Time Status Last Admin Dose Admin Levetiracetam 1000 mg/Dextrose 110 ml @ 440 mls/hr 1X ONCE 10/29/18 15:00 10/29/18 15:14 DC 10/29/18 15:07 440 MLS/HR Sodium Chloride 1,000 ml @ 1,000 mls/hr 1X ONCE 10/29/18 15:00 10/29/18 15:59 DC 10/29/18 15:07 1,000 MLS/HR Allergies Allergies Allergies Coded Allergies Type Severity Reaction Last Updated Verified No Known Drug Allergies 07/21/17 No Physical Exam Physical Exam Constitutional: Well developed, well nourished, no acute distress, non-toxic appearance. [] HENT: Right side forehead skin contusion, swelling, right side facial skin abrasion, bilateral external ears normal, oropharynx moist, no oral exudates, nose normal. [] Eyes: PERRLA, EOMI, conjunctiva normal, no discharge. [] Neck: Normal range of motion, no tenderness, supple, no stridor. [] Cardiovascular:Heart rate regular rhythm, no murmur [] Lungs & Thorax: Bilateral breath sounds clear to auscultation [] Abdomen: Bowel sounds normal, soft, no tenderness, no masses, no pulsatile masses. [] Skin: Warm, dry, superficial skin abrasion on forehead, right side face, right shoulder. Back: No tenderness, no CVA tenderness. [] Extremities: No tenderness, no cyanosis, no clubbing, ROM intact, no edema. [] Neurologic: Alert and oriented X 3, normal motor function, normal sensory function, no focal deficits noted. [] Psychologic: Affect normal, judgement normal, mood normal. [] Current Patient Data Vital Signs Vital Signs Date Time Temp Pulse Resp B/P (MAP) Pulse Ox O2 Delivery O2 Flow Rate FiO2 10/29/18 15:48 62 18 98 10/29/18 14:46 98.7 137/76 (96) Room Air 98.7 Lab Values Laboratory Tests Test 10/29/18 14:50 White Blood Count 7.2 x10^3/uL (4.0-11.0) Red Blood Count 4.85 x10^6/uL (3.50-5.40) Hemoglobin 11.6 g/dL (12.0-15.5) L Hematocrit 36.1 % (36.0-47.0) Mean Corpuscular Volume 74 fL (79-100) L Mean Corpuscular Hemoglobin 24 pg (25-35) L Mean Corpuscular Hemoglobin Concent 32 g/dL (31-37) Red Cell Distribution Width 14.6 % (11.5-14.5) H Platelet Count 220 x10^3/uL (140-400) Neutrophils (%) (Auto) 57 % (31-73) Lymphocytes (%) (Auto) 34 % (24-48) Monocytes (%) (Auto) 7 % (0-9) Eosinophils (%) (Auto) 2 % (0-3) Basophils (%) (Auto) 1 % (0-3) Neutrophils # (Auto) 4.1 x10^3/uL (1.8-7.7) Lymphocytes # (Auto) 2.5 x10^3/uL (1.0-4.8) Monocytes # (Auto) 0.5 x10^3/uL (0.0-1.1) Eosinophils # (Auto) 0.1 x10^3/uL (0.0-0.7) Basophils # (Auto) 0.1 x10^3/uL (0.0-0.2) Sodium Level 143 mmol/L (136-145) Potassium Level 3.1 mmol/L (3.5-5.1) L Chloride Level 107 mmol/L (98-107) Carbon Dioxide Level 22 mmol/L (21-32) Anion Gap 14 (6-14) Blood Urea Nitrogen 9 mg/dL (7-20) Creatinine 0.8 mg/dL (0.6-1.0) Estimated GFR (Cockcroft-Gault) 89.5 BUN/Creatinine Ratio 11 (6-20) Glucose Level 102 mg/dL (70-99) H Calcium Level 8.8 mg/dL (8.5-10.1) Total Bilirubin 0.4 mg/dL (0.2-1.0) Aspartate Amino Transferase (AST) 14 U/L (15-37) L Alanine Aminotransferase (ALT) 22 U/L (14-59) Alkaline Phosphatase 104 U/L (46-116) Creatine Kinase 226 U/L (26-192) H Troponin I Quantitative < 0.017 ng/mL (0.000-0.055) Total Protein 7.9 g/dL (6.4-8.2) Albumin 3.9 g/dL (3.4-5.0) Albumin/Globulin Ratio 1.0 (1.0-1.7) Carbamazepine (Tegretol) Level 6.6 mcg/mL (4.0-12.0) Carbamazepine Last Dose Date 10/28/18 Carbamazepine Last Dose Time 1999 Ethyl Alcohol Level < 10 mg/dL (0-10) Laboratory Tests 10/29/18 14:50 Laboratory Tests 10/29/18 14:50 EKG EKG [] Radiology/Procedures Radiology/Procedures [][facility] [address] [place] [address] IMAGING REPORT Signed PATIENT: CLAYTON GUEVARA ACCOUNT: [id number] : 1960 LOCATION: ER AGE: 58 SEX: F EXAM STATUS: REG ER ORD. PHYSICIAN: JF BURGOS DO REASON: HAD A SEIZURE, FELL DOWN, HEAD AND FACIAL INJURY PROCEDURE: CT HEAD AND CERVICAL SPINE WO EXAM: Head CT without contrast; cervical spine CT without contrast; maxillofacial bone CT without contrast. HISTORY: Seizure. Fall. TECHNIQUE: Computed tomographic images of the head, cervical spine and maxillofacial bones were obtained without contrast. *One or more of the following individualized dose reduction techniques were utilized for this examination: 1. Automated exposure control. 2. Adjustment of the mA and/or kV according to patient size. 3. Use of iterative reconstruction technique. COMPARISON: None. FINDINGS: Head: There is a moderate to large inferior right frontal scalp and right periorbital soft tissue hematoma. No intracranial hemorrhage is seen. There is no mass effect or midline shift. There is no hydrocephalus. There is nonspecific decreased attenuation within the cerebral white matter, likely due to chronic small vessel disease. There is a suspected small chronic lacunar infarct or dilated perivascular space within the right putamen or external capsule. No calvarial lesion is seen. The mastoid air cells are clear. Cervical spine: There is no significant listhesis. The vertebral bodies are normal in height. There is degenerative endplate remodeling and Schmorl's node formation at C6-C7. There is mild facet arthropathy at multiple levels. No severe stenosis is seen. There is biapical pleural parenchymal scarring. Maxillofacial bones: There is a chronic appearing left nasal bone fracture. There is no sinus opacification or air-fluid level. The temporomandibular joints are intact. There is incidental torus mandibularis. IMPRESSION: 1. Inferior right frontal scalp and right periorbital soft tissue hematoma. There is no acute intracranial finding or evidence of acute maxillofacial bone trauma. 2. Subtle decreased attenuation within the cerebral white matter, likely due to chronic small vessel disease. There may be a chronic lacunar infarct or dilated perivascular space within the right basal ganglia or external capsule. 3. Suspected chronic left nasal bone fracture. 4. Multilevel degenerative change involving the cervical spine, described above. Electronically signed by: Brit Do MD (10/29/2018 3:56 PM) [facility] DICTATED and SIGNED BY: BRIT DO MD DATE: 10/29/[address] [address] IMAGING REPORT Signed PATIENT: CLAYTON GUEVARA ACCOUNT: [id number] : 1960 LOCATION: ER AGE: 58 SEX: F EXAM STATUS: REG ER ORD. PHYSICIAN: JF BURGOS DO REASON: LEFT SIDE PELVIC PAIN PROCEDURE: PELVIS EXAM: Pelvis, single view; right shoulder, 3 views. HISTORY: Pain. COMPARISON: None. FINDINGS: Pelvis: A frontal view of the pelvis is obtained. There is no fracture, dislocation or subluxation. There is a transitional lumbosacral segment, a normal variant. Right shoulder: 3 views of the right shoulder obtained. There is no fracture, dislocation or subluxation. There is minimal subacromial spurring. IMPRESSION: No acute osseous finding. Electronically signed by: Brit Do MD (10/29/2018 3:36 PM) [facility] DICTATED and SIGNED BY: BRIT DO MD DATE: 10/29/[address] [address] IMAGING REPORT Signed PATIENT: CLAYTON GUEVARA ACCOUNT: [id number] : 1960 LOCATION: ER AGE: 58 SEX: F EXAM STATUS: REG ER ORD. PHYSICIAN: JF BURGOS DO REASON: RIGHT SHOULDER INJURY AFTER HAVING A SEIZURE PROCEDURE: SHOULDER 2+V RIGHT EXAM: Pelvis, single view; right shoulder, 3 views. HISTORY: Pain. COMPARISON: None. FINDINGS: Pelvis: A frontal view of the pelvis is obtained. There is no fracture, dislocation or subluxation. There is a transitional lumbosacral segment, a normal variant. Right shoulder: 3 views of the right shoulder obtained. There is no fracture, dislocation or subluxation. There is minimal subacromial spurring. IMPRESSION: No acute osseous finding. Electronically signed by: Brit Do MD (10/29/2018 3:36 PM) [facility] DICTATED and SIGNED BY: BRIT DO MD DATE: 10/29/18 1536 Course & Med Decision Making Course & Med Decision Making Pertinent Labs and Imaging studies reviewed. (See chart for details) [] Dragon Disclaimer Dragon Disclaimer This electronic medical record was generated, in whole or in part, using a voice recognition dictation system. Departure Departure Impression: Primary Impression: Seizure Additional Impressions: Head contusion Facial contusion Disposition: ADMITTED INPATIENT Admitting Physician: KEVEN REYES) Condition: STABLE Referrals: JOE CHEW MD (PCP) Problem Qualifiers JF BURGOS DO Oct 29, 2018 16:26
[2018-10-29] MEDS ORDERED: ONDANSETRON ODT 4 MG TAB.RAPDIS. PO PRN (16:45)
[2018-10-29] MEDS ORDERED: DIPHTH,PERTUSS(ACELL),TET TOX 0.5 ML DISP.SYRIN. VAX IM ONE (16:45)
[2018-10-29] MEDS ORDERED: cloNIDine HCL 0.1 MG TABLET PO PRN (16:45)
[2018-10-29] MEDS ORDERED: POTASSIUM CHLORIDE 20 MEQ TABLET.ER. PO ONE (16:45)
[2018-10-29] MEDS ORDERED: ACETAMINOPHEN/CODEINE 300/30MG TABLET. PO PRN (16:45)
[2018-10-29] MEDS ORDERED: MORPHINE SULFATE 2 MG/ML VIAL. IV PRN (16:45)
[2018-10-29] MEDS ORDERED: CALCIUM CARBONATE 500 MG TAB.CHEW PO PRN (16:45)
[2018-10-29] MEDS ORDERED: ACETAMINOPHEN 500 MG TABLET PO PRN (16:45)
[2018-10-29] MEDS ORDERED: ZOLPIDEM 5 MG TABLET. PO PRN (16:45)
[2018-10-29] MEDS ORDERED: HYDROcodone/APAP 5/325MG 1 TAB TABLET PO PRN (16:45)
[2018-10-29] MEDS ORDERED: IBUPROFEN 400 MG TABLET. PO PRN (16:45)
--- NOTE | 2018-10-29 16:48 | PDOC1 ---
History and Physical Date of Admission Date of Admission DATE: 10/29/18 TIME: 16:42 Identification/Chief Complaint Chief Complaint sz in 2 consec days Source Source: Caregiver, Chart review, Patient History of Present Illness History of Present Illness 58-year-old -[place] female who has had seizures since she was a kid, known to Dr. Tsai, seizures yesterday while grocery, went to the ER was advised admission but refused admission, Today at the neighbor's driveway, seized again fell and this time hit her right side of the face and has facial abrasions on the right forehead and an obvious right frontal hematoma. Scans are negative for fracture but shows the subcutaneous or soft tissue swelling in the right supraorbital area. Right shoulder and right hip are negative for any fracture. Mildly hypokalemic 3.1. Tegretol level still pending Anemic with hemoglobin 11 and MCV 70s - She is slightly drowsy or sleepy from meds. I'm unsure how her menstrual bleeding is - if she still menstruates or if she ever had a colonoscopy or stool occult etc. done We'll check for iron panel and stool occult I will readdress when she is more awake Tegretol levels are pending. We will consult neurology, seizure precaution, continue all home meds. Past Medical History CENTRAL NERVOUS SYSTEM: Seizure GI: GERD Past Surgical History Past Surgical History: No pertinent history Family History Family History: Hypertension Social History Smoke: No ALCOHOL: none Drugs: None Current Problem List Problem List Problems Medical Problems: (1) Facial contusion Status: Acute (2) Head contusion Status: Acute (3) Seizure Status: Acute Current Medications Current Medications Current Medications Levetiracetam 1000 mg/Dextrose 110 ml @ 440 mls/hr 1X ONCE IV Last administered on 10/29/18at 15:07; Start 10/29/18 at 15:00; Stop 10/29/18 at 15:14; Status DC Sodium Chloride 1,000 ml @ 1,000 mls/hr 1X ONCE IV Last administered on 10/29/18at 15:07; Start 10/29/18 at 15:00; Stop 10/29/18 at 15:59; Status DC Carbamazepine (TEGretol) 200 mg DAILY PO ; Start 10/30/18 at 09:00 Clonazepam (KlonoPIN) 0.5 mg TID PO ; Start 10/29/18 at 21:00 Acetaminophen/ Hydrocodone Bitart (Lortab 5/325) 1 tab PRN Q6HRS PRN PO PAIN; Start 10/29/18 at 16:45 Ondansetron HCl (Zofran Odt) 4 mg PRN Q8HRS PRN PO NAUSEA/VOMITING; Start 10/29/18 at 16:45 Pantoprazole Sodium (Protonix) 40 mg DAILYAC PO ; Start 10/30/18 at 07:30 Lorazepam (Ativan Inj) 2 mg PRN Q4HRS PRN IV SEIZURE; Start 10/29/18 at 16:45 Acetaminophen (Tylenol) 500 mg PRN Q6HRS PRN PO HEADACHE / TEMP; Start 10/29/18 at 16:45 Acetaminophen/ Codeine Phosphate (Tylenol #3) 1 tab PRN Q6HRS PRN PO PAIN MILD TO MODERATE; Start 10/29/18 at 16:45 Zolpidem Tartrate (Ambien) 5 mg PRN QHS PRN PO INSOMNIA; Start 10/29/18 at 16:45 Calcium Carbonate/ Glycine (Tums) 500 mg PRN AFTMEALHC PRN PO INDIGESTION; Start 10/29/18 at 16:45 Clonidine HCl (Catapres) 0.1 mg PRN Q1HR PRN PO HYPERTENSION; Start 10/29/18 at 16:45 Ibuprofen (Motrin) 400 mg PRN Q6HRS PRN PO INFLAMMATION; Start 10/29/18 at 16:45 Potassium Chloride (Klor-Con) 40 meq 1X ONCE PO ; Start 10/29/18 at 16:45; Stop 10/29/18 at 16:46 Diphtheria/ Tetanus/Acell Pertussis (Boostrix) 0.5 ml ONCE ONCE VAX IM ; Start 10/29/18 at 16:45; Stop 10/29/18 at 16:46 Morphine Sulfate (Morphine Sulfate) 1 mg PRN Q2HR PRN IV PAIN; Start 10/29/18 at 16:45; Status UNV Active Scripts Active Protonix (Pantoprazole Sodium) 20 Mg Tablet.dr 1 Tab PO DAILY [place] 5-325 Tablet (Acetaminophen/Hydrocodone Bitart) 1 Each Tablet 1-2 Each PO PRN Q6HRS PRN as needed for pain Zofran (Ondansetron Hcl) 4 Mg Tablet 4 Mg PO PRN TID PRN nausea/vomiting Cephalexin 500 Mg Capsule 1 Cap PO QID Reported Klonopin (Clonazepam) 0.5 Mg Tablet 0.5 Mg PO TID Tegretol (Carbamazepine) 200 Mg Tablet 200 Mg PO Allergies Allergies: Coded Allergies: No Known Drug Allergies (Unverified , 07/21/17) ROS Review of System rt Face hurts from the abrasion and hematoma otherwise rest of 14 ROS point reviewed negative Physical Exam General: No acute distress, Other (mildy sleepy from er meds) HEENT: PERRLA, Other (right forehead abrasion right cheek bone, abrasion, obvious right supraorbital frontal hematoma) Lungs: Clear to auscultation, Normal air movement Heart: S1S2 Cardiovascular: S1, S2 Breasts: Normal, Rt breast nml w/o mass, Lt breast nml w/o mass, Nipples normal Abdomen: Normal bowel sounds, Soft, No tenderness, No hepatosplenomegaly, No masses Rectal Exam: not examined PELVIC: Nml ext genitalia Extremities: No clubbing, No cyanosis, No edema, Normal pulses, No tenderness/swelling Skin: No rashes, No breakdown, No significant lesion Neuro: Normal gait, Normal speech, Strength at 5/5 X4 ext, Normal tone, Sensation intact, Cranial nerves 3-12 NL, Reflexes 2+ Psych/Mental Status: Mental status NL, Mood NL Vitals Vitals Vital Signs Date Time Temp Pulse Resp B/P (MAP) Pulse Ox O2 Delivery O2 Flow Rate FiO2 10/29/18 15:48 62 18 98 10/29/18 14:46 98.7 137/76 (96) Room Air 98.7 Labs Labs Laboratory Tests Test 10/29/18 14:50 White Blood Count 7.2 x10^3/uL (4.0-11.0) Red Blood Count 4.85 x10^6/uL (3.50-5.40) Hemoglobin 11.6 g/dL (12.0-15.5) Hematocrit 36.1 % (36.0-47.0) Mean Corpuscular Volume 74 fL (79-100) Mean Corpuscular Hemoglobin 24 pg (25-35) Mean Corpuscular Hemoglobin Concent 32 g/dL (31-37) Red Cell Distribution Width 14.6 % (11.5-14.5) Platelet Count 220 x10^3/uL (140-400) Neutrophils (%) (Auto) 57 % (31-73) Lymphocytes (%) (Auto) 34 % (24-48) Monocytes (%) (Auto) 7 % (0-9) Eosinophils (%) (Auto) 2 % (0-3) Basophils (%) (Auto) 1 % (0-3) Neutrophils # (Auto) 4.1 x10^3/uL (1.8-7.7) Lymphocytes # (Auto) 2.5 x10^3/uL (1.0-4.8) Monocytes # (Auto) 0.5 x10^3/uL (0.0-1.1) Eosinophils # (Auto) 0.1 x10^3/uL (0.0-0.7) Basophils # (Auto) 0.1 x10^3/uL (0.0-0.2) Sodium Level 143 mmol/L (136-145) Potassium Level 3.1 mmol/L (3.5-5.1) Chloride Level 107 mmol/L (98-107) Carbon Dioxide Level 22 mmol/L (21-32) Anion Gap 14 (6-14) Blood Urea Nitrogen 9 mg/dL (7-20) Creatinine 0.8 mg/dL (0.6-1.0) Estimated GFR (Cockcroft-Gault) 89.5 BUN/Creatinine Ratio 11 (6-20) Glucose Level 102 mg/dL (70-99) Calcium Level 8.8 mg/dL (8.5-10.1) Total Bilirubin 0.4 mg/dL (0.2-1.0) Aspartate Amino Transf (AST/SGOT) 14 U/L (15-37) Alanine Aminotransferase (ALT/SGPT) 22 U/L (14-59) Alkaline Phosphatase 104 U/L (46-116) Creatine Kinase 226 U/L (26-192) Troponin I Quantitative < 0.017 ng/mL (0.000-0.055) Total Protein 7.9 g/dL (6.4-8.2) Albumin 3.9 g/dL (3.4-5.0) Albumin/Globulin Ratio 1.0 (1.0-1.7) Carbamazepine (Tegretol) Level 6.6 mcg/mL (4.0-12.0) Carbamazepine Last Dose Date 10/28/18 Carbamazepine Last Dose Time 1999 Ethyl Alcohol Level < 10 mg/dL (0-10) Laboratory Tests Test 10/29/18 14:50 White Blood Count 7.2 x10^3/uL (4.0-11.0) Red Blood Count 4.85 x10^6/uL (3.50-5.40) Hemoglobin 11.6 g/dL (12.0-15.5) Hematocrit 36.1 % (36.0-47.0) Mean Corpuscular Volume 74 fL (79-100) Mean Corpuscular Hemoglobin 24 pg (25-35) Mean Corpuscular Hemoglobin Concent 32 g/dL (31-37) Red Cell Distribution Width 14.6 % (11.5-14.5) Platelet Count 220 x10^3/uL (140-400) Neutrophils (%) (Auto) 57 % (31-73) Lymphocytes (%) (Auto) 34 % (24-48) Monocytes (%) (Auto) 7 % (0-9) Eosinophils (%) (Auto) 2 % (0-3) Basophils (%) (Auto) 1 % (0-3) Neutrophils # (Auto) 4.1 x10^3/uL (1.8-7.7) Lymphocytes # (Auto) 2.5 x10^3/uL (1.0-4.8) Monocytes # (Auto) 0.5 x10^3/uL (0.0-1.1) Eosinophils # (Auto) 0.1 x10^3/uL (0.0-0.7) Basophils # (Auto) 0.1 x10^3/uL (0.0-0.2) Sodium Level 143 mmol/L (136-145) Potassium Level 3.1 mmol/L (3.5-5.1) Chloride Level 107 mmol/L (98-107) Carbon Dioxide Level 22 mmol/L (21-32) Anion Gap 14 (6-14) Blood Urea Nitrogen 9 mg/dL (7-20) Creatinine 0.8 mg/dL (0.6-1.0) Estimated GFR (Cockcroft-Gault) 89.5 BUN/Creatinine Ratio 11 (6-20) Glucose Level 102 mg/dL (70-99) Calcium Level 8.8 mg/dL (8.5-10.1) Total Bilirubin 0.4 mg/dL (0.2-1.0) Aspartate Amino Transf (AST/SGOT) 14 U/L (15-37) Alanine Aminotransferase (ALT/SGPT) 22 U/L (14-59) Alkaline Phosphatase 104 U/L (46-116) Creatine Kinase 226 U/L (26-192) Troponin I Quantitative < 0.017 ng/mL (0.000-0.055) Total Protein 7.9 g/dL (6.4-8.2) Albumin 3.9 g/dL (3.4-5.0) Albumin/Globulin Ratio 1.0 (1.0-1.7) Carbamazepine (Tegretol) Level 6.6 mcg/mL (4.0-12.0) Carbamazepine Last Dose Date 10/28/18 Carbamazepine Last Dose Time 1999 Ethyl Alcohol Level < 10 mg/dL (0-10) VTE Prophylaxis Ordered VTE Prophylaxis Devices: Yes VTE Pharmacological Prophylaxi: Yes Assessment/Plan Assessment/Plan Right supraorbital/frontal hematoma with right forehead abrasion Right cheekbone abrasion secondary to seizure/fall Noninjury fall except for skin abrasions of the face Known seizures-Tegretol levels pending Mild hypokalemia 3.1 Full code GERD on PPI Microcytic anemia-check iron panel and microcytic indicis Can have outpatient colonoscopy if not yet done Plan: 2 MN< seizure precaution, tegretol levels pending Continue both meds Xanax or Ativan when necessary for seizures 2 midnights 6[address] floor please Iron panel and stool occult re microcytic anemia Consult neurology KCl 40�1 and recheck tomorrow Outpatient C scope if not yet done Further recs pending course Wound care will call of that right facial abrasion and hematoma Seen at ER Dw ER LIZZ GEE MD Oct 29, 2018 16:48
[2018-10-29] MEDS ORDERED: NEOMY/BACITR/POLYMYXIN OINT PACKET. TP ONE (17:15)
[2018-10-29 19:43] VITALS: BP 136/76
[2018-10-29] MEDS ORDERED: carBAMazepine 200 MG TABLET PO ONE (20:30)
[2018-10-29] MEDS: clonazePAM 0.5 MG TABLET PO SCH (20:52)
--- NOTE | 2018-10-29 21:05 | PDOC2 ---
NEUROLOGY CONSULT Date of Admission Date of Admission Full Report Dictated DATE: 10/29/18 TIME: 21:03 Patient is a 58-year-old woman with a lifelong history of a generalized tonic- clonic seizure disorder. She is followed by Dr. Faustin as an outpatient. She is to be maintained on Tegretol 200 mg twice per day but does admit she will often just take 400 mg at night. She is previously been on a higher dosage and felt she did better. Neurologic exam was nonfocal. I will give her 400 mg Tegretol tonight and change her dosage tomorrow to 300 mg twice per day. We couldn't get a follow-up level in 7-10 days. If she remains seizure-free overnight she may be dismissed from a neurologic perspective. Current Medications Current Medications Current Medications Levetiracetam 1000 mg/Dextrose 110 ml @ 440 mls/hr 1X ONCE IV Last administered on 10/29/18at 15:07; Start 10/29/18 at 15:00; Stop 10/29/18 at 15:14; Status DC Sodium Chloride 1,000 ml @ 1,000 mls/hr 1X ONCE IV Last administered on 10/29/18at 15:07; Start 10/29/18 at 15:00; Stop 10/29/18 at 15:59; Status DC Carbamazepine (TEGretol) 200 mg DAILY PO ; Start 10/30/18 at 09:00; Stop 10/30/18 at 09:00; Status DC Clonazepam (KlonoPIN) 0.5 mg TID PO Last administered on 10/29/18at 20:52; Start 10/29/18 at 21:00 Acetaminophen/ Hydrocodone Bitart (Lortab 5/325) 1 tab PRN Q6HRS PRN PO PAIN; Start 10/29/18 at 16:45 Ondansetron HCl (Zofran Odt) 4 mg PRN Q8HRS PRN PO NAUSEA/VOMITING; Start 10/29/18 at 16:45 Pantoprazole Sodium (Protonix) 40 mg DAILYAC PO ; Start 10/30/18 at 07:30 Lorazepam (Ativan Inj) 2 mg PRN Q4HRS PRN IV SEIZURE; Start 10/29/18 at 16:45 Acetaminophen (Tylenol) 500 mg PRN Q6HRS PRN PO HEADACHE / TEMP; Start 10/29/18 at 16:45 Acetaminophen/ Codeine Phosphate (Tylenol #3) 1 tab PRN Q6HRS PRN PO PAIN MILD TO MODERATE; Start 10/29/18 at 16:45 Zolpidem Tartrate (Ambien) 5 mg PRN QHS PRN PO INSOMNIA; Start 10/29/18 at 16:45 Calcium Carbonate/ Glycine (Tums) 500 mg PRN AFTMEALHC PRN PO INDIGESTION; Start 10/29/18 at 16:45 Clonidine HCl (Catapres) 0.1 mg PRN Q1HR PRN PO HYPERTENSION; Start 10/29/18 at 16:45 Ibuprofen (Motrin) 400 mg PRN Q6HRS PRN PO INFLAMMATION; Start 10/29/18 at 16:45 Potassium Chloride (Klor-Con) 40 meq 1X ONCE PO Last administered on 10/29/18at 16:54; Start 10/29/18 at 16:45; Stop 10/29/18 at 16:46; Status DC Diphtheria/ Tetanus/Acell Pertussis (Boostrix) 0.5 ml ONCE ONCE VAX IM Last administered on 10/29/18at 16:55; Start 10/29/18 at 16:45; Stop 10/29/18 at 16:46; Status DC Morphine Sulfate (Morphine Sulfate) 1 mg PRN Q2HR PRN IV PAIN; Start 10/29/18 at 16:45 Neomycin/ Polymyxin/ Bacitracin (Triple Antibiotic Ointment) 1 pkt 1X ONCE TP Last administered on 10/29/18at 17:00; Start 10/29/18 at 17:15; Stop 10/29/18 at 17:16; Status DC Carbamazepine (TEGretol) 400 mg ONCE ONCE PO Last administered on 10/29/18at 20:52; Start 10/29/18 at 20:30; Stop 10/29/18 at 20:32; Status DC Carbamazepine (TEGretol) 300 mg BID PO ; Start 10/30/18 at 09:00 Active Scripts Active Protonix (Pantoprazole Sodium) 20 Mg Tablet. 1 Tab PO DAILY [place] 5-325 Tablet (Acetaminophen/Hydrocodone Bitart) 1 Each Tablet 1-2 Each PO PRN Q6HRS PRN as needed for pain Zofran (Ondansetron Hcl) 4 Mg Tablet 4 Mg PO PRN TID PRN nausea/vomiting Cephalexin 500 Mg Capsule 1 Cap PO QID Reported Klonopin (Clonazepam) 0.5 Mg Tablet 0.5 Mg PO TID Tegretol (Carbamazepine) 200 Mg Tablet 200 Mg PO Allergies Allergies: Coded Allergies: No Known Drug Allergies (Unverified , 07/21/17) Vitals VITALS Vital Signs Date Time Temp Pulse Resp B/P (MAP) Pulse Ox O2 Delivery O2 Flow Rate FiO2 10/29/18 19:43 97.4 76 20 136/76 (96) 96 Room Air 97.4 Labs Labs Laboratory Tests Test 10/29/18 14:10 10/29/18 14:50 Iron Level 149 ug/dL (50-170) Total Iron Binding Capacity 324 ug/dL (250-450) Iron Saturation 46 % (15-34) White Blood Count 7.2 x10^3/uL (4.0-11.0) Red Blood Count 4.85 x10^6/uL (3.50-5.40) Hemoglobin 11.6 g/dL (12.0-15.5) Hematocrit 36.1 % (36.0-47.0) Mean Corpuscular Volume 74 fL (79-100) Mean Corpuscular Hemoglobin 24 pg (25-35) Mean Corpuscular Hemoglobin Concent 32 g/dL (31-37) Red Cell Distribution Width 14.6 % (11.5-14.5) Platelet Count 220 x10^3/uL (140-400) Neutrophils (%) (Auto) 57 % (31-73) Lymphocytes (%) (Auto) 34 % (24-48) Monocytes (%) (Auto) 7 % (0-9) Eosinophils (%) (Auto) 2 % (0-3) Basophils (%) (Auto) 1 % (0-3) Neutrophils # (Auto) 4.1 x10^3/uL (1.8-7.7) Lymphocytes # (Auto) 2.5 x10^3/uL (1.0-4.8) Monocytes # (Auto) 0.5 x10^3/uL (0.0-1.1) Eosinophils # (Auto) 0.1 x10^3/uL (0.0-0.7) Basophils # (Auto) 0.1 x10^3/uL (0.0-0.2) Sodium Level 143 mmol/L (136-145) Potassium Level 3.1 mmol/L (3.5-5.1) Chloride Level 107 mmol/L (98-107) Carbon Dioxide Level 22 mmol/L (21-32) Anion Gap 14 (6-14) Blood Urea Nitrogen 9 mg/dL (7-20) Creatinine 0.8 mg/dL (0.6-1.0) Estimated GFR (Cockcroft-Gault) 89.5 BUN/Creatinine Ratio 11 (6-20) Glucose Level 102 mg/dL (70-99) Calcium Level 8.8 mg/dL (8.5-10.1) Total Bilirubin 0.4 mg/dL (0.2-1.0) Aspartate Amino Transf (AST/SGOT) 14 U/L (15-37) Alanine Aminotransferase (ALT/SGPT) 22 U/L (14-59) Alkaline Phosphatase 104 U/L (46-116) Creatine Kinase 226 U/L (26-192) Troponin I Quantitative < 0.017 ng/mL (0.000-0.055) Total Protein 7.9 g/dL (6.4-8.2) Albumin 3.9 g/dL (3.4-5.0) Albumin/Globulin Ratio 1.0 (1.0-1.7) Carbamazepine (Tegretol) Level 6.6 mcg/mL (4.0-12.0) Carbamazepine Last Dose Date 10/28/18 Carbamazepine Last Dose Time 1999 Ethyl Alcohol Level < 10 mg/dL (0-10) Laboratory Tests Test 10/29/18 14:10 10/29/18 14:50 Iron Level 149 ug/dL (50-170) Total Iron Binding Capacity 324 ug/dL (250-450) Iron Saturation 46 % (15-34) White Blood Count 7.2 x10^3/uL (4.0-11.0) Red Blood Count 4.85 x10^6/uL (3.50-5.40) Hemoglobin 11.6 g/dL (12.0-15.5) Hematocrit 36.1 % (36.0-47.0) Mean Corpuscular Volume 74 fL (79-100) Mean Corpuscular Hemoglobin 24 pg (25-35) Mean Corpuscular Hemoglobin Concent 32 g/dL (31-37) Red Cell Distribution Width 14.6 % (11.5-14.5) Platelet Count 220 x10^3/uL (140-400) Neutrophils (%) (Auto) 57 % (31-73) Lymphocytes (%) (Auto) 34 % (24-48) Monocytes (%) (Auto) 7 % (0-9) Eosinophils (%) (Auto) 2 % (0-3) Basophils (%) (Auto) 1 % (0-3) Neutrophils # (Auto) 4.1 x10^3/uL (1.8-7.7) Lymphocytes # (Auto) 2.5 x10^3/uL (1.0-4.8) Monocytes # (Auto) 0.5 x10^3/uL (0.0-1.1) Eosinophils # (Auto) 0.1 x10^3/uL (0.0-0.7) Basophils # (Auto) 0.1 x10^3/uL (0.0-0.2) Sodium Level 143 mmol/L (136-145) Potassium Level 3.1 mmol/L (3.5-5.1) Chloride Level 107 mmol/L (98-107) Carbon Dioxide Level 22 mmol/L (21-32) Anion Gap 14 (6-14) Blood Urea Nitrogen 9 mg/dL (7-20) Creatinine 0.8 mg/dL (0.6-1.0) Estimated GFR (Cockcroft-Gault) 89.5 BUN/Creatinine Ratio 11 (6-20) Glucose Level 102 mg/dL (70-99) Calcium Level 8.8 mg/dL (8.5-10.1) Total Bilirubin 0.4 mg/dL (0.2-1.0) Aspartate Amino Transf (AST/SGOT) 14 U/L (15-37) Alanine Aminotransferase (ALT/SGPT) 22 U/L (14-59) Alkaline Phosphatase 104 U/L (46-116) Creatine Kinase 226 U/L (26-192) Troponin I Quantitative < 0.017 ng/mL (0.000-0.055) Total Protein 7.9 g/dL (6.4-8.2) Albumin 3.9 g/dL (3.4-5.0) Albumin/Globulin Ratio 1.0 (1.0-1.7) Carbamazepine (Tegretol) Level 6.6 mcg/mL (4.0-12.0) Carbamazepine Last Dose Date 10/28/18 Carbamazepine Last Dose Time 1999 Ethyl Alcohol Level < 10 mg/dL (0-10) MORGAN CHARLES MD Oct 29, 2018 21:05
[2018-10-29 23:20] VITALS: BP 144/81
--- NOTE | 2018-10-30 02:58 | CONS ---
DATE OF CONSULTATION: 10/29/2018 REFERRING PHYSICIAN: Jessy Loja MD. REASON FOR CONSULTATION: Recurrent seizure and known seizure disorder. HISTORY OF PRESENT ILLNESS: The patient is a 58-year-old woman who has had seizures since she was a young child. She is followed by Dr. Joe Faustin. She has been maintained on Tegretol. When she was followed by different neurologists, her Tegretol level was higher than the current. She is supposed to be taking Tegretol 200 mg twice per day. She does admit there are many days that she just takes 400 mg at night and does not take 200 mg in the morning. She has had some breakthrough seizure. Prior to this, the most recent breakthrough seizure was March. She was in the Emergency Room recently, but refused admission. On this occasion, she was at a neighbor's driveway, had a seizure and struck the right side of her face with abrasions. She came in for investigation and fortunately did not have fracture or subdural hematoma. She does have some soreness of her left leg and her face is abrased, but not terribly painful. Since being admitted, she has not had further seizure. The Tegretol level was measured to be 6.6. PAST MEDICAL HISTORY: 1. Generalized tonic-clonic seizure disorder. 2. Gastroesophageal reflux disease. ALLERGIES: No known allergies to drugs. MEDICINES PRIOR TO ADMISSION: Acetaminophen/hydrocodone as needed, Tegretol 200 mg twice per day, but she generally takes 400 mg at night, cephalexin 500 mg 4 times a day, clonazepam 0.5 mg up to 3 times a day, Zofran 4 mg as needed and pantoprazole 20 mg. FAMILY HISTORY: Hypertension. SOCIAL HISTORY: She reports she is a lifelong nonsmoker. She does not drink alcohol. She does occasionally smoke marijuana. She is single, but has a boyfriend. She is not working, but is on disability. REVIEW OF SYSTEMS: She does not have headache. There has been no change of vision or hearing. She is not aware of any cognitive loss. She has been able to chew and swallow. She does not have shortness of breath, chest or abdominal pain. She does have bone and joint pain with the left leg. She has not had fever or rash. Does not have any gastrointestinal or genitourinary complaints. She feels her weight has been stable. She always has a very slight build. She does not complain of any focal numbness. She does not have any psychiatric concerns. She does not complain of easy bruising or bleeding. PHYSICAL EXAMINATION: VITAL SIGNS: The blood pressure was 136/76, pulse 76, respirations 20, temperature 97.4 degrees Fahrenheit. Oximetry was 96% on room air. Her weight was 54.4 kilograms, height 66 inches with a calculated body mass index of 19.4. NEUROLOGIC: She was alert, awake and cooperative. Speech was fluent and clear. She had a good fund of recent and remote knowledge. Attention and concentration was intact. She appeared well groomed and well nourished. She was fully oriented. Examination of the cranial nerves revealed visual godoy were full to confrontation. Extraocular movements were intact. The eyes were conjugate. Pursuit movements were smooth and saccadic eye movements were without dysmetria. Pupils were 2-3 mm. Funduscopic exam did not reveal papilledema. Facial sensation was intact bilaterally. She had abrasions across the right side of the face. There was swelling. The muscles of mastication and facial expression were powerful symmetrically. Hearing was intact to finger rub. The palate arched symmetrically and the tongue was midline with full range of motion. Sternocleidomastoid and trapezius were powerful. Muscle bulk and tone was normal. There was no arm drift or abnormal movement. There was no leg drift. Power was full and symmetric in the upper and lower extremities. Reflexes 2/4 and symmetric in the upper and lower extremities, but diminished at the right ankle. The toes were downgoing bilaterally. Coordination testing with [id number], [id number], fine motor and rapid alternating movements was well performed. Sensory exam was intact to pain, light touch, proprioception, graphesthesia, cold thermal and vibration. There was no extinction to double simultaneous stimulation. Gait was of a normal base and steady. She was able to stand on heels or toes. Romberg stance was negative. Auscultation of the carotid arteries did not reveal a bruit. HEART: Rhythm is regular, without a murmur. EXTREMITIES: Peripheral pulses were symmetric in the hands and in the feet. There was no edema or cyanosis. REVIEW OF LABORATORY DATA: CBC revealed a normal white blood cell count and platelet count. Hemoglobin was low at 11.6, hematocrit normal at 36.1. Chemistries revealed normal sodium, but potassium was low at 3.1. The chloride and CO2 were normal. BUN and creatinine were normal. Glucose was elevated to 102. Calcium was normal. Liver enzymes were not elevated. CPK was elevated to 226. Troponin was not elevated. Total protein and albumin were normal. Iron saturation was elevated at 46% with an iron of 149 and TIBC of 324. Tegretol level was 6.6. Alcohol was not detected. CT scan of the head and cervical spine was performed 10/29/2018 and revealed no acute intracranial findings. There was some scalp and right periorbital tissue hematoma. There was some subtle chronic small vessel disease. There was a suspected chronic left nasal bone fracture. There were multiple degenerative changes in the cervical spine. Shoulder x-ray on the right revealed no bony abnormality. Pelvis x-ray revealed no bony abnormality. IMPRESSION: The patient is a 58-year-old woman who has a lifelong history of seizure disorder and had a breakthrough seizure today as well as yesterday. She is not taking her Tegretol properly. The Tegretol level was in the lower therapeutic range. RECOMMENDATIONS: I do not feel we necessarily need to add a new medication, but rather optimize the Tegretol dosage. I will give her an extra 400 mg for her bedtime dosage and tomorrow we will increase her Tegretol to 300 mg twice per day. We could always have a followup level in 7-10 days. We discussed the importance of actually taking it twice a day and not all at night because of its shorter half-life she would have too low of a level before her next dosage. I would also even consider switching her to more of a sustained release Tegretol if her insurance would cover that dosage form. She will continue to follow up with Dr. Faustin. I appreciate being involved in her care. If she remains seizure free overnight, she may be dismissed from a neurologic perspective. MORGAN CHARLES MD DR: CLAYTON/hayley JOB#: [id number] / [id number] JOE Gaines MD, FERILYN MD
[2018-10-30 03:30] VITALS: BP 141/73
[2018-10-30 07:00] VITALS: BP 145/77
[2018-10-30] MEDS ORDERED: PANTOPRAZOLE 40 MG TABLET.DR. PO SCH (07:30)
[2018-10-30] MEDS ORDERED: CARB200T4 PO (08:57)
[2018-10-30] MEDS ORDERED: carBAMazepine 200 MG TABLET PO SCH ×2 (09:00)
[2018-10-30] MEDS: clonazePAM 0.5 MG TABLET PO SCH (10:05)
[2018-10-30 11:00] VITALS: BP 138/72
--- NOTE | 2018-10-30 11:13 | PDOC3 ---
Discharge Summary Visit Information Date of Admission: Oct 29, 2018 Date of Discharge: Oct 30, 2018 Admitting Diagnosis Comment: Right supraorbital/frontal hematoma with right forehead abrasion Right cheekbone abrasion secondary to seizure/fall Noninjury fall except for skin abrasions of the face Known seizures-Tegretol levels pending Mild hypokalemia 3.1 Full code GERD on PPI Microcytic anemia-check iron panel and microcytic indicis Can have outpatient colonoscopy if not yet done Final Diagnosis Problems Medical Problems: (1) Facial contusion Status: Acute (2) Head contusion Status: Acute (3) Seizure Status: Acute Brief Hospital Course Allergies Allergies Coded Allergies Type Severity Reaction Last Updated Verified No Known Drug Allergies 07/21/17 No Vital Signs Vital Signs Date Time Temp Pulse Resp B/P (MAP) Pulse Ox O2 Delivery O2 Flow Rate FiO2 10/30/18 08:00 Room Air 10/30/18 07:00 98.2 67 18 145/77 (99) 100 98.2 Lab Results Laboratory Tests Test 10/29/18 14:10 10/29/18 14:50 10/30/18 04:00 Iron Level 149 ug/dL (50-170) Total Iron Binding Capacity 324 ug/dL (250-450) Iron Saturation 46 % (15-34) White Blood Count 7.2 x10^3/uL (4.0-11.0) Red Blood Count 4.85 x10^6/uL (3.50-5.40) Hemoglobin 11.6 g/dL (12.0-15.5) Hematocrit 36.1 % (36.0-47.0) Mean Corpuscular Volume 74 fL (79-100) Mean Corpuscular Hemoglobin 24 pg (25-35) Mean Corpuscular Hemoglobin Concent 32 g/dL (31-37) Red Cell Distribution Width 14.6 % (11.5-14.5) Platelet Count 220 x10^3/uL (140-400) Neutrophils (%) (Auto) 57 % (31-73) Lymphocytes (%) (Auto) 34 % (24-48) Monocytes (%) (Auto) 7 % (0-9) Eosinophils (%) (Auto) 2 % (0-3) Basophils (%) (Auto) 1 % (0-3) Neutrophils # (Auto) 4.1 x10^3/uL (1.8-7.7) Lymphocytes # (Auto) 2.5 x10^3/uL (1.0-4.8) Monocytes # (Auto) 0.5 x10^3/uL (0.0-1.1) Eosinophils # (Auto) 0.1 x10^3/uL (0.0-0.7) Basophils # (Auto) 0.1 x10^3/uL (0.0-0.2) Sodium Level 143 mmol/L (136-145) Potassium Level 3.1 mmol/L (3.5-5.1) 4.1 mmol/L (3.5-5.1) Chloride Level 107 mmol/L (98-107) Carbon Dioxide Level 22 mmol/L (21-32) Anion Gap 14 (6-14) Blood Urea Nitrogen 9 mg/dL (7-20) Creatinine 0.8 mg/dL (0.6-1.0) Estimated GFR (Cockcroft-Gault) 89.5 BUN/Creatinine Ratio 11 (6-20) Glucose Level 102 mg/dL (70-99) Calcium Level 8.8 mg/dL (8.5-10.1) Total Bilirubin 0.4 mg/dL (0.2-1.0) Aspartate Amino Transf (AST/SGOT) 14 U/L (15-37) Alanine Aminotransferase (ALT/SGPT) 22 U/L (14-59) Alkaline Phosphatase 104 U/L (46-116) Creatine Kinase 226 U/L (26-192) Troponin I Quantitative < 0.017 ng/mL (0.000-0.055) Total Protein 7.9 g/dL (6.4-8.2) Albumin 3.9 g/dL (3.4-5.0) Albumin/Globulin Ratio 1.0 (1.0-1.7) Carbamazepine (Tegretol) Level 6.6 mcg/mL (4.0-12.0) Carbamazepine Last Dose Date 10/28/18 Carbamazepine Last Dose Time 1999 Ethyl Alcohol Level < 10 mg/dL (0-10) Laboratory Tests Test 10/29/18 14:10 10/29/18 14:50 10/30/18 04:00 Iron Level 149 ug/dL (50-170) Total Iron Binding Capacity 324 ug/dL (250-450) Iron Saturation 46 % (15-34) White Blood Count 7.2 x10^3/uL (4.0-11.0) Red Blood Count 4.85 x10^6/uL (3.50-5.40) Hemoglobin 11.6 g/dL (12.0-15.5) Hematocrit 36.1 % (36.0-47.0) Mean Corpuscular Volume 74 fL (79-100) Mean Corpuscular Hemoglobin 24 pg (25-35) Mean Corpuscular Hemoglobin Concent 32 g/dL (31-37) Red Cell Distribution Width 14.6 % (11.5-14.5) Platelet Count 220 x10^3/uL (140-400) Neutrophils (%) (Auto) 57 % (31-73) Lymphocytes (%) (Auto) 34 % (24-48) Monocytes (%) (Auto) 7 % (0-9) Eosinophils (%) (Auto) 2 % (0-3) Basophils (%) (Auto) 1 % (0-3) Neutrophils # (Auto) 4.1 x10^3/uL (1.8-7.7) Lymphocytes # (Auto) 2.5 x10^3/uL (1.0-4.8) Monocytes # (Auto) 0.5 x10^3/uL (0.0-1.1) Eosinophils # (Auto) 0.1 x10^3/uL (0.0-0.7) Basophils # (Auto) 0.1 x10^3/uL (0.0-0.2) Sodium Level 143 mmol/L (136-145) Potassium Level 3.1 mmol/L (3.5-5.1) 4.1 mmol/L (3.5-5.1) Chloride Level 107 mmol/L (98-107) Carbon Dioxide Level 22 mmol/L (21-32) Anion Gap 14 (6-14) Blood Urea Nitrogen 9 mg/dL (7-20) Creatinine 0.8 mg/dL (0.6-1.0) Estimated GFR (Cockcroft-Gault) 89.5 BUN/Creatinine Ratio 11 (6-20) Glucose Level 102 mg/dL (70-99) Calcium Level 8.8 mg/dL (8.5-10.1) Total Bilirubin 0.4 mg/dL (0.2-1.0) Aspartate Amino Transf (AST/SGOT) 14 U/L (15-37) Alanine Aminotransferase (ALT/SGPT) 22 U/L (14-59) Alkaline Phosphatase 104 U/L (46-116) Creatine Kinase 226 U/L (26-192) Troponin I Quantitative < 0.017 ng/mL (0.000-0.055) Total Protein 7.9 g/dL (6.4-8.2) Albumin 3.9 g/dL (3.4-5.0) Albumin/Globulin Ratio 1.0 (1.0-1.7) Carbamazepine (Tegretol) Level 6.6 mcg/mL (4.0-12.0) Carbamazepine Last Dose Date 10/28/18 Carbamazepine Last Dose Time 1999 Ethyl Alcohol Level < 10 mg/dL (0-10) Brief Hospital Course Ms. Jaimes is a 58 old [place] female has seizures since a kid, known patient of Dr. Tsai, seized for 2 consecutive days, 1 in the grocery store and the next day at the [employer] this time hit her right face and has contusion hematoma but no fractures. Consulted neurology advised increase Tegretol from 200 once a day to 300 twice a day. Tegretol levels are therapeutic. I did note this Rx. Neurology advised to take Tegretol levels in 1 week and I wrote for prescription Follow-up Dr. Tsai upon discharge in 1-2 weeks Patient seen and examined requested some pain pills I wrote for some hydrocodone, not NSAID because of the hematoma on the left on the right side of the face which is rather significantly improving and she is able to open her eyes now DC time less than 30 minutes, observation status Discharge Information Condition at Discharge: Improved, Stable Follow Up: Weeks (1-[address] cantu) Disposition/Orders: D/C to Home Scheduled Carbamazepine (Carbamazepine) 200 Mg Tablet, 300 MG PO BID for sz, #60 Prescribed by: LIZZ ORR on 10/30/18 0829 Clonazepam (Klonopin) 0.5 Mg Tablet, 0.5 MG PO TID, (Reported) Entered as Reported by: Stephany Jiménez on 07/21/17 1129 Last Action: Continued on 10/29/18 1634 by LIZZ ORR Pantoprazole Sodium (Protonix) 20 Mg Tablet.dr, 1 TAB PO DAILY, #30 Ref 3 Prescribed by: VICKY SCHMIDT MD on 06/04/182158 Last Action: Converted on 10/29/181633 by LIZZ ORR Scheduled PRN Hydrocodone/[place] 5-325 ([place] 5-325 Tablet) 1 Each Tablet, 1-2 EACH PO PRN Q6HRS PRN for PAIN, #15 as needed for pain Prescribed by: VICKY SCHMIDT MD on 06/04/182158 Last Action: Continued on 10/29/181633 by LIZZ ORR Ondansetron Hcl (Zofran) 4 Mg Tablet, 4 MG PO PRN TID PRN for NAUSEA/VOMITING, # 15 nausea/vomiting Prescribed by: VICKY SCHMIDT MD on 06/04/182158 Last Action: Converted on 10/29/181633 by LIZZ ORR Discontinued Medications Carbamazepine (Tegretol) 200 Mg Tablet, 200 MG PO, (Reported) Entered as Reported by: Stephany Jiménez on 07/21/17 1129 Last Action: Continued on 10/29/181633 by LIZZ ORR Cephalexin (Cephalexin) 500 Mg Capsule, 1 CAP PO QID, #40 Prescribed by: VICKY SCHMIDT MD on 06/04/182158 Last Action: HELD on 10/29/181633 by LIZZ CALHOUN MD Oct 30, 2018 11:13
--- NOTE | 2018-10-30 11:43 | NUR ---
Discharge Note: CLAYTON GUEVARA [address] [place] [address] Discharge instructions and discharge home medications reviewed with Patient and a copy given. All questions have been answered and understanding verbalized. The following instructions and handouts were given: FOLLOW UP INSTRUCTIONS, MEDICATION LISTS, AND ACTIVITY LEVELS. Discontinued lines and drains: Peripheral IV DISCONTINUED AND CATHETER intact. Patient discharged to Home or Self Care with Ambulance Personnel via [facility]
== END 2018-10-30 11:15 | disposition home or self-care (01) | DRG 101 ==
LOC: ER 14:46 → 6 SOUTH 16:25
PROVIDERS: ADMIT Internal Medicine; ATTEND Internal Medicine
DX: G40.409 Other generalized epilepsy and epileptic syndromes, not intractable, without status epilepticus (principal); S00.83XA Contusion of other part of head, initial encounter; W18.39XA Other fall on same level, initial encounter; S00.81XA Abrasion of other part of head, initial encounter; E87.6 Hypokalemia; K21.9 Gastro-esophageal reflux disease without esophagitis; D50.9 Iron deficiency anemia, unspecified; F12.90 Cannabis use, unspecified, uncomplicated; Y93.89 Activity, other specified; Z79.899 Other long term (current) drug therapy; Y92.89 Other specified places as the place of occurrence of the external cause; Y99.8 Other external cause status; Z82.49 Family history of ischemic heart disease and other diseases of the circulatory system
CPT/HCPCS: 36415; 70450; 70486; 72125; 72170; 73030; 73552; 80053; 80156; 80307; 81001; 82550; 83540; 83550; 84132; 84484; 85025; 87040; 90471; 90715; 93005; G0480; J1953; J7030

== ENCOUNTER → 2018-11-04 | Outpatient (CLI) | payer OTHER ==
[2018-10-30 11:00] VITALS: BP 138/72
[~2018-11-04] MED LIST changes: +CARB200T4 PO
[2018-11-04 13:07] LABS: CARBAM 11.6 mcg/mL (4.0-12.0)
== END | disposition home or self-care (01) ==
LOC: LAB 12:02
PROVIDERS: ATTEND Internal Medicine
DX: R56.9 Unspecified convulsions (principal)
CPT/HCPCS: 36415; 80156

== ENCOUNTER → 2018-12-21 | Outpatient (CLI) | payer OTHER ==
--- NOTE | 2018-12-21 15:48 | RAD ---
EXAM: Right shoulder, 3 views; right humerus, 2 views. HISTORY: Limited range of motion. COMPARISON: None. FINDINGS: 3 views of the right shoulder and 2 views the right humerus are obtained. There is no fracture, dislocation or subluxation. There is linear scarring or atelectasis within the left upper lobe. IMPRESSION: No acute osseous finding. Electronically signed by: Brit Becerra MD (12/21/2018 3:45 PM) [facility]
--- NOTE | 2018-12-21 15:48 | RAD ---
EXAM: Right shoulder, 3 views; right humerus, 2 views. HISTORY: Limited range of motion. COMPARISON: None. FINDINGS: 3 views of the right shoulder and 2 views the right humerus are obtained. There is no fracture, dislocation or subluxation. There is linear scarring or atelectasis within the left upper lobe. IMPRESSION: No acute osseous finding. Electronically signed by: Brit Becerra MD (12/21/2018 3:45 PM) [facility]
== END | disposition home or self-care (01) ==
LOC: RAD 13:12
PROVIDERS: ATTEND Family Medicine
DX: M79.621 Pain in right upper arm (principal)
CPT/HCPCS: 73030; 73060

== ENCOUNTER 2019-04-02 14:37 | Emergency (ER) | payer OTHER ==
[~2019-04-02] VITALS: Ht 167.6 cm; Wt 46.7 kg
--- NOTE | 2019-04-02 14:50 | PHYS DOC ---
Past Medical History Past Medical History: Anemia, Other Additional Past Medical Histor: EPILEPSY Past Surgical History: Other Additional Past Surgical Histo: TUBES TIDE, 'FACIAL SURGERY' Alcohol Use: None Drug Use: Marijuana Adult General Chief Complaint Chief Complaint: SEIZURE HPI HPI Patient is a 58 year old female who presents after a seizure to the ER. The patient has a history of seizures. The patient does not remember how she got to the ER. EMS brought the patient to the ER unclear who called EMS. Patient was at home when she had the seizure. The seizure happened prior to arrival. The patient is slightly postictal arrival. She states that she usually takes Te gretol for seizures and has been taking as regular schedule. Review of Systems Review of Systems Constitutional: Denies fever or chills [] Eyes: Denies change in visual acuity, redness, or eye pain [] HENT: Denies nasal congestion or sore throat [] Respiratory: Denies cough or shortness of breath [] Cardiovascular: No additional information not addressed in HPI [] GI: Denies abdominal pain, nausea, vomiting, bloody stools or diarrhea [] : Denies dysuria or hematuria [] Musculoskeletal: Denies back pain or joint pain [] Integument: Denies rash or skin lesions [] Neurologic: Denies headache, focal weakness or sensory changes [] Endocrine: Denies polyuria or polydipsia [] Complete systems were reviewed and found to be within normal limits, except as documented in this note. Current Medications Current Medications Current Medications Medications (Trade) Dose Ordered Sig/Nishant Start Time Stop Time Status Last Admin Dose Admin Ondansetron HCl (Zofran) 4 mg 1X ONCE 04/02/19 15:00 04/02/19 15:01 DC 04/02/19 15:09 4 MG Sodium Chloride 1,000 ml @ 1,000 mls/hr 1X ONCE 04/02/19 15:00 04/02/19 15:59 DC 04/02/19 15:09 1,000 MLS/HR Allergies Allergies Allergies Coded Allergies Type Severity Reaction Last Updated Verified No Known Drug Allergies 07/21/17 No Physical Exam Physical Exam Constitutional: Well developed, well nourished, no acute distress, non-toxic appearance. [] HENT: Normocephalic, atraumatic, bilateral external ears normal, oropharynx moist, no oral exudates, nose normal. [] Eyes: PERRLA, EOMI, conjunctiva normal, no discharge. [] Neck: Normal range of motion, no tenderness, supple, no stridor. [] Cardiovascular:Heart rate regular rhythm, no murmur [] Lungs & Thorax: Bilateral breath sounds clear to auscultation [] Abdomen: Bowel sounds normal, soft, no tenderness, no masses, no pulsatile masses. [] Skin: Warm, dry, no erythema, no rash. [] Back: No tenderness, no CVA tenderness. [] Extremities: No tenderness, no cyanosis, no clubbing, ROM intact, no edema. [] Neurologic: Alert and oriented X 3, normal motor function, normal sensory function, no focal deficits noted. [] Psychologic: Affect normal, judgement normal, mood normal. [] Current Patient Data Vital Signs Vital Signs Date Time Temp Pulse Resp B/P (MAP) Pulse Ox O2 Delivery O2 Flow Rate FiO2 04/02/19 14:37 98.1 72 16 145/68 (93) 99 Room Air 98.1 Lab Values Laboratory Tests Test 04/02/19 14:47 White Blood Count 8.3 x10^3/uL (4.0-11.0) Red Blood Count 5.12 x10^6/uL (3.50-5.40) Hemoglobin 12.6 g/dL (12.0-15.5) Hematocrit 39.4 % (36.0-47.0) Mean Corpuscular Volume 77 fL (79-100) L Mean Corpuscular Hemoglobin 25 pg (25-35) Mean Corpuscular Hemoglobin Concent 32 g/dL (31-37) Red Cell Distribution Width 15.2 % (11.5-14.5) H Platelet Count 290 x10^3/uL (140-400) Neutrophils (%) (Auto) 57 % (31-73) Lymphocytes (%) (Auto) 36 % (24-48) Monocytes (%) (Auto) 6 % (0-9) Eosinophils (%) (Auto) 1 % (0-3) Basophils (%) (Auto) 1 % (0-3) Neutrophils # (Auto) 4.7 x10^3/uL (1.8-7.7) Lymphocytes # (Auto) 3.0 x10^3/uL (1.0-4.8) Monocytes # (Auto) 0.5 x10^3/uL (0.0-1.1) Eosinophils # (Auto) 0.1 x10^3/uL (0.0-0.7) Basophils # (Auto) 0.0 x10^3/uL (0.0-0.2) Sodium Level 141 mmol/L (136-145) Potassium Level 3.7 mmol/L (3.5-5.1) Chloride Level 103 mmol/L (98-107) Carbon Dioxide Level 29 mmol/L (21-32) Anion Gap 9 (6-14) Blood Urea Nitrogen 15 mg/dL (7-20) Creatinine 0.8 mg/dL (0.6-1.0) Estimated GFR (Cockcroft-Gault) 89.5 BUN/Creatinine Ratio 19 (6-20) Glucose Level 99 mg/dL (70-99) Calcium Level 8.7 mg/dL (8.5-10.1) Total Bilirubin 0.2 mg/dL (0.2-1.0) Aspartate Amino Transferase (AST) 12 U/L (15-37) L Alanine Aminotransferase (ALT) 13 U/L (14-59) L Alkaline Phosphatase 105 U/L (46-116) Total Protein 7.9 g/dL (6.4-8.2) Albumin 4.1 g/dL (3.4-5.0) Albumin/Globulin Ratio 1.1 (1.0-1.7) Laboratory Tests 04/02/19 14:47 Laboratory Tests 04/02/19 14:47 EKG EKG [] Radiology/Procedures Radiology/Procedures []IMAGING REPORT Signed PATIENT: CARRIE GUEVARACCOUNT: [id number] : 1960 LOCATION: ER AGE: 58 SEX: F EXAM STATUS: PRE ER ORD. PHYSICIAN: ERIK NICHOLSON APRN REASON: seizure PROCEDURE: CT HEAD WO CONTRAST CT brain without contrast. HISTORY: Seizure CT scan of the brain was done without contrast. Comparison is made with a study from October 29, 2018. There is mild mucosal thickening in the left maxillary sinus, remaining sinuses are clear. There is extracranial soft tissue swelling on the right forehead less prominent than the old study. There is no intracranial hemorrhage or subdural hematoma. Ventricles are normal in size. There is no mass or shift of the midline. An acute CVA is not identified. IMPRESSION: 1. No intracranial hemorrhage or mass or acute finding noted. [facility] Compliance Statement: One or more of the following individualized dose reduction techniques were utilized for this examination: 1. Automated exposure control 2. Adjustment of the mA and/or kV according to patient size 3. Use of iterative reconstruction technique Electronically signed by: Derik Mackey MD (04/02/2019 3:17 PM) [id number] DICTATED and SIGNED BY: DERIK MACKEY MD DATE: 04/02/19 1517 Course & Med Decision Making Course & Med Decision Making Pertinent Labs and Imaging studies reviewed. (See chart for details) Will get CT head, labs, and give supportive care. Workup is unremarkable. Will d/c home to follow up with primary care and neur ology. Dragon Disclaimer Dragon Disclaimer This electronic medical record was generated, in whole or in part, using a voice recognition dictation system. Departure Departure Impression: Primary Impression: Seizure Disposition: 01 HOME, SELF-CARE Condition: STABLE Referrals: FAUSTINO ARRIAGA MD (PCP) Patient Instructions: Seizure, Adult Additional Instructions: Thank you for visiting [facility]. We appreciate you trusting us with your care. If any additional problems come up don't hesitate to return to visit us. Please follow up with your primary care provider so they can plan additional care if needed and know about the problem that you had. If symptoms worsen come back to the Emergency Department. Any concerning symptoms that start such as chest pain, shortness of air, weakness or numbness on one side of the body, running high fevers or any other concerning symptoms return to the ER. Please follow up with your neurologist. Please make sure to take your seizure medicine. ERIK NICHOLSON APRN Apr 02, 2019 14:50
[2019-04-02 14:59] LABS: BASO % 1 % (0-3); EOS # 0.1 x10^3/uL (0.0-0.7); EOS % 1 % (0-3); HEMATOCRIT 39.4 % (36.0-47.0); HEMOGLOBIN 12.6 g/dL (12.0-15.5); LYMPH % 36 % (24-48); MEAN CORPUSCULAR HEMOGLOBIN 25 pg (25-35); MEAN CORPUSCULAR HGB CONC 32 g/dL (31-37); MEAN CORPUSCULAR VOLUME 77 fL (79-100); MONO # 0.5 x10^3/uL (0.0-1.1); MONO % 6 % (0-9); NEUT # 4.7 x10^3/uL (1.8-7.7); NEUT % 57 % (31-73); PLATELET COUNT 290 x10^3/uL (140-400); RED BLOOD COUNT 5.12 x10^6/uL (3.50-5.40); RED CELL DISTRIBUTION WIDTH 15.2 % (11.5-14.5); WHITE BLOOD COUNT 8.3 x10^3/uL (4.0-11.0)
[2019-04-02] MEDS: IV NORMAL SALINE 1000ML BAG 1,000 ML IV ONE (15:09)
[2019-04-02] MEDS: ONDANSETRON PF 4 MG/2 ML VIAL. IV ONE (15:09)
[2019-04-02 15:10] LABS: CALCIUM 8.7 mg/dL (8.5-10.1); CREATININE 0.8 mg/dL (0.6-1.0); GFR 89.5; POTASSIUM 3.7 mmol/L (3.5-5.1)
[2019-04-02 15:18] LABS: ALBUMIN 4.1 g/dL (3.4-5.0); ALBUMIN/GLOBULIN RATIO 1.1 (1.0-1.7); TOTAL BILIRUBIN 0.2 mg/dL (0.2-1.0); TOTAL PROTEIN 7.9 g/dL (6.4-8.2)
--- NOTE | 2019-04-02 15:20 | RAD ---
CT brain without contrast. HISTORY: Seizure CT scan of the brain was done without contrast. Comparison is made with a study from October 29, 2018. There is mild mucosal thickening in the left maxillary sinus, remaining sinuses are clear. There is extracranial soft tissue swelling on the right forehead less prominent than the old study. There is no intracranial hemorrhage or subdural hematoma. Ventricles are normal in size. There is no mass or shift of the midline. An acute CVA is not identified. IMPRESSION: 1. No intracranial hemorrhage or mass or acute finding noted. [facility] Compliance Statement: One or more of the following individualized dose reduction techniques were utilized for this examination: 1. Automated exposure control 2. Adjustment of the mA and/or kV according to patient size 3. Use of iterative reconstruction technique Electronically signed by: Derik Mackey MD (04/02/2019 3:17 PM) [id number]
[2019-04-02 16:07] VITALS: BP 138/65
== END 2019-04-02 16:15 | disposition home or self-care (01) ==
LOC: ER 14:37
DX: G40.909 Epilepsy, unspecified, not intractable, without status epilepticus (principal)
CPT/HCPCS: 36415; 70450; 80053; 85025; 96374; 99285; J2405; J7030

== ENCOUNTER → 2019-05-01 | Outpatient (CLI) | payer OTHER ==
[2019-04-02 16:07] VITALS: BP 138/65
--- NOTE | 2019-05-02 15:32 | EEG ---
DATE OF SERVICE: 05/01/2019 ELECTROENCEPHALOGRAM REPORT EEG NUMBER: [id number] OBJECTIVE: The patient is a 58-year-old female with epilepsy with frequent breakthrough seizures. DESCRIPTION: This is a 24-hour recording. Video monitoring was malfunctioning during this study. Electrodes are placed according to the international 10-20 system. Bipolar and referential montages are available. Activation procedures typically include hyperventilation and intermittent photic stimulation. INTERPRETATION: The waking background consists of 9-10 Hz, 50-100 microvolt activity, symmetrically distributed over parietooccipital regions and reactive to eye opening. No clinical epileptic events were observed. There are occasional sharp waves with phase reversal at F7 and less commonly at F4. All stages of sleep are achieved with normal electroencephalogram patterns. Hyperventilation and intermittent photic stimulation are noncontributory. IMPRESSION: This long-term monitoring electroencephalogram unfortunately done without video monitoring shows epileptic activity arising from the left anterior temporal lobe and the right frontal lobe independently. No epileptic events were recorded. The patient will return to the EEG lab for repeat study with video monitoring. Thank you for letting us to help with the patient's care. JOE CHEW MD DR: SUJEY/hayley JOB#: [id number] / [id number]
== END | disposition home or self-care (01) ==
LOC: SLPLAB 05:42
PROVIDERS: ATTEND Psychiatry & Neurology Neurology with Special Qualifications in Child Neurology
DX: G40.309 Generalized idiopathic epilepsy and epileptic syndromes, not intractable, without status epilepticus (principal)
CPT/HCPCS: 95951

== ENCOUNTER → 2019-05-22 | Outpatient (CLI) | payer OTHER ==
--- NOTE | 2019-05-23 19:37 | EEG ---
DATE OF SERVICE: 05/22/2019 ELECTROENCEPHALOGRAM REPORT EEG NUMBER: [id number], performed on 05/22/2019. OBJECTIVE: The patient is a 58-year-old female with epilepsy with frequent breakthrough seizures. She had a 24-hour EEG on 05/01/2019, during which the video monitoring failed. Epileptic activity was observed over the left anterior temporal lobe and the right frontal lobe independently, but no epileptic events were recorded. The study is repeated today with video monitoring to see if we can capture an electrographic seizure. DESCRIPTION: This is a 24-hour recording with video monitoring. Electrodes are placed according to the international 10-20 system. Bipolar and referential montages are available. Activation procedures typically include hyperventilation and intermittent photic stimulation. INTERPRETATION: The waking background consists of 9-10 Hz, 50-100 microvolt activity, symmetrically distributed over parietooccipital regions and reactive to eye opening. No clinical epileptic events were observed. For instance, the computer identified an event and the patient was simply fanning herself. Again, identified are occasional sharp waves with phase reversal at F7 and also at F4, independently. All stages of sleep are achieved with normal electroencephalogram patterns. Hyperventilation and intermittent photic stimulation are noncontributory. IMPRESSION: This long-term video-monitored electroencephalogram shows epileptic activity arising from the left anterior temporal lobe and the right frontal lobe, independently, also as seen in the prior study. No epileptic events are recorded on the study. Thank you for letting us to help with the patient's care. JOE CHEW MD DR: SUJEY/hayley JOB#: [id number] / [id number] FAUSTINO Mccurdy MD
== END ==
LOC: SLPLAB 05:40
PROVIDERS: ATTEND Psychiatry & Neurology Neurology with Special Qualifications in Child Neurology
DX: G40.802 Other epilepsy, not intractable, without status epilepticus (principal); R06.4 Hyperventilation
CPT/HCPCS: 95951

== ENCOUNTER 2019-12-01 15:00 | Emergency (ER) | payer OTHER ==
[~2019-12-01] VITALS: Ht 167.6 cm; Wt 47.7 kg
[2019-12-01] MEDS ORDERED: IV NORMAL SALINE 1000ML BAG 1,000 ML IV SCH (15:28)
[2019-12-01] MEDS ORDERED: PANTOPRAZOLE IV PUSH 40 MG VIAL. IVP ONE (15:30)
[2019-12-01] MEDS ORDERED: ONDANSETRON PF 4 MG/2 ML VIAL. IVP ONE (15:30)
[2019-12-01] MEDS ORDERED: fentaNYL PF VIAL 100 MCG/2 ML VIAL IVP ONE (15:30)
--- NOTE | 2019-12-01 15:35 | PHYS DOC ---
Past Medical History Past Medical History: Anemia, Other Additional Past Medical Histor: EPILEPSY (PHI ALEXIS SPIRITUAL ADVISOR) Past Surgical History: Other Additional Past Surgical Histo: TUBES TIDE, 'FACIAL SURGERY' (BULLPHI SPIRITUAL ADVISOR) Smoking Status: Current Every Day Smoker Alcohol Use: None Drug Use: Marijuana (BULLPHI SPIRITUAL ADVISOR) General Adult EDM: Chief Complaint: ABDOMINAL PAIN HPI: HPI: Patient is a 59 year old female who presents with epigastric pain that is sharp and constant and aching and was 1 week. She states she has had this pain before and she states that she has had ulcers in her stomach. She states that she knows if she eats certain foods it makes her stomach feel like this. She states she ate some spicy food about a week ago. She states she has not been taking any medication for it. States the nonradiating pain is a 10 out of 10. She de nies vomiting, radiation of pain, dizziness, headache, vomiting, blood in her vomit, blood in her stool, diarrhea, chest pain, shortness of air, fever, numbness or tingling, syncope, focal weakness. She states she had a bowel movement this morning but it was very small. Patient has a history of ulcers, seizure, anemia, smoker. (PHI ALEXIS SPIRITUAL ADVISOR) Review of Systems: Review of Systems: Constitutional: Denies fever or chills. [] Eyes: Denies change in visual acuity. [] HENT: Denies nasal congestion or sore throat. [] Respiratory: Denies cough or shortness of breath. [] Cardiovascular: Denies chest pain or edema. [] GI: Epigastric abdominal pain, lack of appetite, denies nausea, vomiting, bloody stools or diarrhea. [] : Denies dysuria. [] Musculoskeletal: Denies back pain or joint pain. [] Integument: Denies rash. [] Neurologic: Denies headache, focal weakness or sensory changes. [] Endocrine: Denies polyuria or polydipsia. [] Lymphatic: Denies swollen glands. [] Psychiatric: Denies depression or anxiety. [] (PHI ALEXIS SPIRITUAL ADVISOR) Heart Score: Risk Factors: Risk Factors: DM, Current or recent (<one month) smoker, HTN, HLP, family history of CAD, obesity. Risk Scores: Score 0 - 3: 2.5% MACE over next 6 weeks - Discharge Home Score 4 - 6: 20.3% MACE over next 6 weeks - Admit for Clinical Observation Score 7 - 10: 72.7% MACE over next 6 weeks - Early Invasive Strategies (PHI ALEXIS APRN) Allergies: Allergies: Allergies Coded Allergies Type Severity Reaction Last Updated Verified No Known Drug Allergies 07/21/17 No (PHI ALEXIS APRN) Physical Exam: PE: Constitutional: Well developed, well nourished, no acute distress, non-toxic appearance. [] HENT: Normocephalic, atraumatic, bilateral external ears normal, oropharynx moist, no oral exudates, nose normal. [] Eyes: PERRLA, EOMI, conjunctiva normal, no discharge. [] Neck: Normal range of motion, no tenderness, supple, no stridor. [] Cardiovascular:Heart rate regular rhythm, no murmur [] Lungs & Thorax: Bilateral breath sounds clear to auscultation [] Abdomen: Bowel sounds normal, soft, no tenderness, no masses, no pulsatile masses. [] Skin: Warm, dry, no erythema, no rash. [] Back: No tenderness, no CVA tenderness. [] Extremities: No tenderness, no cyanosis, no clubbing, ROM intact, no edema. [] Neurologic: Alert and oriented X 3, normal motor function, normal sensory function, no focal deficits noted. [] Psychologic: Affect normal, judgement normal, mood normal. Normal physical exam [] (PHI ALEXIS APRN) Current Patient Data: Vital Signs: Vital Signs Date Time Temp Pulse Resp B/P (MAP) Pulse Ox O2 Delivery O2 Flow Rate FiO2 12/01/19 15:18 98.3 94 16 142/77 (98) 100 Room Air 98.3 (PHI ALEXIS APRN) EKG: EK and read by [] (PHI ALEXIS APRN) Radiology/Procedures: Radiology/Procedures: [] Impression: [facility] [address] [place] [address] IMAGING REPORT Signed PATIENT: ANNE-MARIE GUEVARA MACCOUNT: [id number] : 1960 LOCATION: ER AGE: 59 SEX: F EXAM STATUS: REG ER ORD. PHYSICIAN: PHI ALEXIS APRN REASON: ABD PAIN, NO APPETITE PROCEDURE: CT ABD PELV W/ IV CONTRST ONLY EXAM: CT Abdomen and Pelvis with IV contrast INDICATION: Reason: ABD PAIN, NO APPETITE / Spl. Instructions: INJ 75ML OMNI 300 / History: TECHNIQUE: Multi-detector row CT images were acquired from the lung bases through the abdomen and pelvis with the use of IV contrast. Sagittal and coronal images were acquired from the transaxial data. All CT scans performed at this facility utilize dose optimization techniques as appropriate to the exam, including the following: Automated exposure control and adjustment of the mA and/or KV according to patient size (this includes techniques or standardized protocols for targeted exams where dose is indication/reason for exam). IV CONTRAST: Administered ORAL CONTRAST: Not administered COMPARISON: None FINDINGS: LOWER CHEST: Unremarkable LIVER: Unremarkable BILIARY SYSTEM: Gallbladder is unremarkable. Bile ducts are not dilated. PANCREAS: Unremarkable SPLEEN: Unremarkable ADRENALS: Unremarkable KIDNEYS & URETERS: Unremarkable BLADDER: Unremarkable REPRODUCTIVE ORGANS: 3.4 cm dense mass in the retroflexed uterine fundus. There is evidence of retrograde flow of contrast through a dilated left gonadal vein into distended bilateral adnexal veins with retrograde partial flow up the right gonadal vein GASTROINTESTINAL: The stomach shows mild circumferential wall thickening in the antrum. The small bowel and colon are unremarkable. The appendix is normal. MESENTERY/PERITONEUM/RETROPERITONEUM: Unremarkable VASCULAR: Unremarkable LYMPH NODES: No adenopathy OSSEOUS & SOFT TISSUES: Unremarkable IMPRESSION: 1. Mild nonspecific wall thickening in the gastric antrum, compatible with antral gastritis in the appropriate clinical context. Consider correlation with endoscopy if clinically appropriate. 2. Retrograde venous flow in the left gonadal vein into dilated pelvic veins, potentially reflecting pelvic congestion in the appropriate clinical context. 3. A 3.4 cm dense mass is present in the uterine fundus. This would be better evaluated on pelvic ultrasound or MRI if clinically warranted. It could represent a leiomyoma. Electronically signed by: Adryan Muse MD (12/01/2019 4:34 PM) [id number] DICTATED and SIGNED BY: ADRYAN MUSE MD DATE: 12/01/19 9899 (PHI ALEXIS APRN) Course & Med Decision Making: Course & Med Decision Making Pertinent Labs and Imaging studies reviewed. (See chart for details) Alert and oriented x4. Speaks in full clear sentences. Skin pink warm and dry. Ambulatory with steady gait. Abdomen is soft and nontender. Vital signs are within normal limits. No extremity edema. Lab work unremarkable. Patient will be started on Protonix daily. I will refer her to a GI doctor and a manager corporate strategy. Her CT had some incidental findings of what looks like a uterine fibroid that she should follow-up with. I will give her a copy of her CT report. Patient is stable and in no distress. [] (PHI ALEXIS APRN) Dragon Disclaimer: Dragon Disclaimer: This electronic medical record was generated, in whole or in part, using a voice recognition dictation system. (PHI ALEXIS APRN) Departure Departure Impression: Primary Impression: Gastritis Qualified Codes: K29.50 - Unspecified chronic gastritis without bleeding Additional Impression: Abnormal finding on radiology exam Disposition: HOME, SELF-CARE Condition: STABLE Referrals: FAUSTINO ARRIAGA MD (PCP) DEANN SALCEDO Jr, MD, SCOTT S MD Patient Instructions: Gastritis, Adult, Incidental Abdominal Radiological Finding Additional Instructions: Give a copy of your CT scan to a manager corporate strategy or your primary care provider. Follow-up with a GI doctor concerning your gastritis. Take medication as prescribed. Try to stay away from any spicy foods or alcohol. Scripts Pantoprazole Sodium (PROTONIX) 20 Mg Tablet.dr 1 TAB PO DAILY, #30 TAB Prov: PHI ALEXIS APRN 12/01/19 Justicifation of Admission Dx: Justifications for Admission: Justification of Admission Dx: N/A (PHI ALEXIS APRN) Attending Signature Attending Signature I have reviewed the PA/SALES AND CATERING COORDINATOR's note and plan of care. I was available for consultation as needed during the patient's visit in the emergency department. I agree with the clinical impression, plan, and disposition. (ERIK LINDQUIST DO) PHI ALEXIS APRN Dec 01, 2019 15:35 ERIK LINDQUIST DO Dec 02, 2019 07:01
[2019-12-01 15:41] LABS: BASO # 0.1 x10^3/uL (0.0-0.2); BASO % 1 % (0-3); EOS # 0.4 x10^3/uL (0.0-0.7); EOS % 5 % (0-3); HEMATOCRIT 37.4 % (36.0-47.0); LYMPH # 1.9 x10^3/uL (1.0-4.8); LYMPH % 24 % (24-48); MEAN CORPUSCULAR HEMOGLOBIN 24 pg (25-35); MEAN CORPUSCULAR HGB CONC 32 g/dL (31-37); MEAN CORPUSCULAR VOLUME 76 fL (79-100); MONO # 0.3 x10^3/uL (0.0-1.1); MONO % 4 % (0-9); NEUT # 5.1 x10^3/uL (1.8-7.7); NEUT % 66 % (31-73); PLATELET COUNT 264 x10^3/uL (140-400); RED BLOOD COUNT 4.92 x10^6/uL (3.50-5.40); RED CELL DISTRIBUTION WIDTH 15.1 % (11.5-14.5); WHITE BLOOD COUNT 7.8 x10^3/uL (4.0-11.0)
[2019-12-01 15:48] LABS: PROTHROMBIN TIME PATIENT 13.6 SEC (11.7-14.0)
[2019-12-01 15:50] LABS: CALCIUM 8.9 mg/dL (8.5-10.1); CREATININE 0.7 mg/dL (0.6-1.0); POTASSIUM 3.7 mmol/L (3.5-5.1)
--- NOTE | 2019-12-01 15:53 | EKG ---
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
[2019-12-01 15:56] LABS: ALBUMIN 4.1 g/dL (3.4-5.0); ALBUMIN/GLOBULIN RATIO 1.2 (1.0-1.7); TOTAL BILIRUBIN 0.3 mg/dL (0.2-1.0); TOTAL PROTEIN 7.5 g/dL (6.4-8.2)
[2019-12-01] MEDS ORDERED: IOHEXOL 300 MG/ML 100ML VIAL. IV ONE (16:00)
[2019-12-01] MEDS ORDERED: CONTRAST GIVEN. MC PRN (16:15)
[2019-12-01 16:27] VITALS: BP 149/68
--- NOTE | 2019-12-01 16:36 | RAD ---
EXAM: CT Abdomen and Pelvis with IV contrast INDICATION: Reason: ABD PAIN, NO APPETITE / Spl. Instructions: INJ 75ML OMNI 300 / History: TECHNIQUE: Multi-detector row CT images were acquired from the lung bases through the abdomen and pelvis with the use of IV contrast. Sagittal and coronal images were acquired from the transaxial data. All CT scans performed at this facility utilize dose optimization techniques as appropriate to the exam, including the following: Automated exposure control and adjustment of the mA and/or KV according to patient size (this includes techniques or standardized protocols for targeted exams where dose is indication/reason for exam). IV CONTRAST: Administered ORAL CONTRAST: Not administered COMPARISON: None FINDINGS: LOWER CHEST: Unremarkable LIVER: Unremarkable BILIARY SYSTEM: Gallbladder is unremarkable. Bile ducts are not dilated. PANCREAS: Unremarkable SPLEEN: Unremarkable ADRENALS: Unremarkable KIDNEYS & URETERS: Unremarkable BLADDER: Unremarkable REPRODUCTIVE ORGANS: 3.4 cm dense mass in the retroflexed uterine fundus. There is evidence of retrograde flow of contrast through a dilated left gonadal vein into distended bilateral adnexal veins with retrograde partial flow up the right gonadal vein GASTROINTESTINAL: The stomach shows mild circumferential wall thickening in the antrum. The small bowel and colon are unremarkable. The appendix is normal. MESENTERY/PERITONEUM/RETROPERITONEUM: Unremarkable VASCULAR: Unremarkable LYMPH NODES: No adenopathy OSSEOUS & SOFT TISSUES: Unremarkable IMPRESSION: 1. Mild nonspecific wall thickening in the gastric antrum, compatible with antral gastritis in the appropriate clinical context. Consider correlation with endoscopy if clinically appropriate. 2. Retrograde venous flow in the left gonadal vein into dilated pelvic veins, potentially reflecting pelvic congestion in the appropriate clinical context. 3. A 3.4 cm dense mass is present in the uterine fundus. This would be better evaluated on pelvic ultrasound or MRI if clinically warranted. It could represent a leiomyoma. Electronically signed by: Luis Eduardo Muse MD (12/01/2019 4:34 PM) [id number]
[2019-12-01 16:37] LABS: BILIRUBIN,URINE NEGATIVE (NEG); CLARITY,URINE CLEAR; NITRITE,URINE NEGATIVE (NEG); PH,URINE 6.5 (<5.0-8.0); PROTEIN,URINE NEGATIVE (NEG-TRACE); UROBILINOGEN,URINE 0.2 mg/dL (0.2 mg/dL)
[2019-12-01 16:49] LABS: COLOR,URINE STRAW; SQUAMOUS EPITHELIAL CELL,UR MANY /LPF
[2019-12-01 16:51] LABS: BACTERIA,URINE FEW /HPF (0-FEW); RBC,URINE 0 /HPF (0-2)
[2019-12-01] MEDS ORDERED: PANT20TA2 PO (17:19)
[2019-12-01] MEDS ORDERED: LIDO:MAALOX 1:1 20 ML SINGLE DOSE. SWSW ONE (17:30)
[2019-12-01 18:08] LABS: AMPHETAMINE/METHAMPHETAMINE NEG (NEG); BARBITURATES NEG (NEG); BENZODIAZEPINES NEG (NEG); CANNABINOIDS POS (NEG); COCAINE NEG (NEG); METHADONE NEG (NEG); OPIATES NEG (NEG); PHENCYCLIDINE NEG (NEG)
== END 2019-12-01 17:41 | disposition home or self-care (01) ==
LOC: ER 15:00
DX: K29.50 Unspecified chronic gastritis without bleeding (principal); R10.13 Epigastric pain; R63.0 Anorexia; R93.89 Abnormal findings on diagnostic imaging of other specified body structures; J45.909 Unspecified asthma, uncomplicated; F17.200 Nicotine dependence, unspecified, uncomplicated; F12.90 Cannabis use, unspecified, uncomplicated; Z98.890 Other specified postprocedural states
CPT/HCPCS: 36415; 74177; 80053; 80307; 81001; 83690; 84484; 85025; 85610; 87086; 93005; 96361; 96374; 96375; 99285; C9113; J2405; J3010; J7030; Q9967

== ENCOUNTER → 2019-12-27 | Outpatient (CLI) | payer OTHER ==
[2019-12-01 16:27] VITALS: BP 149/68
[~2019-12-27] MED LIST changes: +TOPI50TA8 PO
== END | disposition home or self-care (01) ==
LOC: LAB 11:19
PROVIDERS: ATTEND Internal Medicine Gastroenterology
DX: Z01.812 Encounter for preprocedural laboratory examination (principal); R10.13 Epigastric pain; Z20.828 Contact with and (suspected) exposure to other viral communicable diseases
CPT/HCPCS: U0003-CS

== ENCOUNTER → 2019-12-29 | Day surgery (SDC) | payer OTHER ==
[~2019-12-29] MED LIST changes: +IV RINGERS,LACTATED 1000ML 1,000 ML IV SCH; +PROPOFOL 10 MG/ML (20ML) VIAL. IV ONE
[2019-12-29 10:30] VITALS: BP 148/78
--- NOTE | 2020-01-01 15:08 | PATHOLOGY ---
[facility] Accession Number: [id number] . 01 Material submitted: . stomach - PYLORIC CHANNEL ULCER . 01 Clinical history: . HX ULCERS, EPIGASTRIC PAIN . 02 Diagnosis: Gastric biopsies, pyloric channel ulcer: - Segments of gastric antral and antral-duodenal mucosa showing mild to moderate chronic inflammation with increased eosinophils. . (JPM:mml; 01/01/2020) [facility] 01/01/2020 1431 Local . 02 Comment: Sections of the pylori channel ulcer biopsy reveal segments of gastric antral and antral-duodenal mucosa showing mild to focal moderate chronic inflammation with focally prominent numbers of admixed eosinophils. A properly-controlled immunoperoxidase stain for Helicobacter is negative for Helicobacter organisms. There is no evidence of malignancy. . Special stain: Immunoperoxidase stain for Helicobacter . (JPM:mml; 01/01/2020) . 02 Electronically signed: . Mau Garvey MD, Pathologist NPI- [id number] . 01 Gross description: . The specimen is received in formalin, labeled "[place], [place]isa, pyloric channel ulcer" and consists of multiple fragments of pink-langston tissue measuring 0.9 x 0.6 x 0.3 cm in aggregate which are entirely submitted in A1. (SDY; 12/29/2019) SYU/SYU 12/29/2019 1715 Local . 02 Pathologist provided ICD-10: K29.50 . 02 CPT . 820004, [id number] Specimen Comment: A courtesy copy of this report has been sent to [phone], [phone] Specimen Comment: [id number] Specimen Comment: Report sent to / DR ARRIAGA Performed at: [address] [place] [address] [address], [place], [place] [id number] MD Markos Campuzano MD Phone: [phone] Performed at: [address] [id number] MD Mau Garvey MD Phone: [phone]
== END | disposition home or self-care (01) ==
LOC: SURG 08:57
PROVIDERS: ATTEND Internal Medicine Gastroenterology
DX: K25.9 Gastric ulcer, unspecified as acute or chronic, without hemorrhage or perforation (principal); K21.9 Gastro-esophageal reflux disease without esophagitis; F17.210 Nicotine dependence, cigarettes, uncomplicated; Z88.8 Allergy status to other drugs, medicaments and biological substances; Z79.899 Other long term (current) drug therapy; Z87.11 Personal history of peptic ulcer disease; Z83.3 Family history of diabetes mellitus; Z82.49 Family history of ischemic heart disease and other diseases of the circulatory system
CPT/HCPCS: 43239; 88305; 88342; J2704

== ENCOUNTER → 2020-03-08 | Outpatient (CLI) | payer OTHER ==
[2019-12-29 10:30] VITALS: BP 148/78
[~2020-03-08] MED LIST changes: -IV RINGERS,LACTATED 1000ML 1,000 ML IV SCH; +LEVE500T21 PO; -PROPOFOL 10 MG/ML (20ML) VIAL. IV ONE
== END ==
LOC: LAB 14:13
PROVIDERS: ATTEND Internal Medicine Gastroenterology
DX: Z01.812 Encounter for preprocedural laboratory examination (principal); Z20.828 Contact with and (suspected) exposure to other viral communicable diseases
CPT/HCPCS: C9803; U0003

== ENCOUNTER → 2020-03-13 | Day surgery (SDC) | payer OTHER ==
[~2020-03-13] MED LIST changes: +IV RINGERS,LACTATED 1000ML 1,000 ML IV ONE; +PROPOFOL 10 MG/ML (20ML) VIAL. IV ONE
[2020-03-13 09:07] VITALS: BP 118/56
--- NOTE | 2020-03-13 11:14 | CONS ---
DATE OF CONSULTATION: 03/13/2020 REFERRING PHYSICIAN: Antonia Gabriel MD REASON FOR CONSULTATION: Gastric ulcers. HISTORY OF PRESENT ILLNESS: A 59-year-old female with past medical history significant for anemia, gastric ulcers, is seen in followup. She has been on PPI therapy for the past 2 months. Upper endoscopy confirmed ____ 2-4% gastric ulcers and early cancer and then taken NSAIDs or aspirin products recently and she has been feeling better. PAST MEDICAL HISTORY: Ulcers, anemia, tobaccoism, hypertension. ALLERGIES: PHENYTOIN. MEDICATIONS: Carbamazepine, clonazepam, Zofran, pantoprazole, topiramate. FAMILY AND SOCIAL HISTORY: Significant for diabetes and hypertension. PAST SURGICAL HISTORY: Tubal ligation. REVIEW OF SYSTEMS: Per records. PHYSICAL EXAMINATION: GENERAL: Reveals a well-nourished, well-developed female who is alert, cooperative, in no acute distress. VITAL SIGNS: Pulse is 90, respirations 18, blood pressure is 130/70. LUNGS: Clear. CARDIOVASCULAR: Reveals an S1, S2 without S3, S4 or appreciable murmur. ABDOMEN: Soft abdomen, normal bowel sounds, without appreciable hepatosplenomegaly. EXTREMITIES: No cyanosis, clubbing or edema. IMPRESSION: Gastric ulcer. Surveillance EGD to confirm ____ 2-4% are early gastric cancers. Risks and benefits have been previously discussed. The patient is willing to proceed at this time. EMI ESCOBAR MD DR: ESA/hayley JOB#: [id number] / [id number]
== END | disposition home or self-care (01) ==
LOC: SURG 08:10
PROVIDERS: ATTEND Internal Medicine Gastroenterology
DX: K29.50 Unspecified chronic gastritis without bleeding (principal); K31.7 Polyp of stomach and duodenum; K25.7 Chronic gastric ulcer without hemorrhage or perforation; I10 Essential (primary) hypertension; K21.9 Gastro-esophageal reflux disease without esophagitis; M19.90 Unspecified osteoarthritis, unspecified site; F17.210 Nicotine dependence, cigarettes, uncomplicated; Z79.899 Other long term (current) drug therapy; Z98.890 Other specified postprocedural states; Z88.8 Allergy status to other drugs, medicaments and biological substances
CPT/HCPCS: 43235; J2704